=== PATIENT | female | born 1970 | race Caucasian/White ===

== ENCOUNTER 2017-09-30 23:27 | Emergency (ER) | payer MEDICARE, SELFPAY ==
[2017-09-30 23:32] VITALS: BP 128/79; PULSE 88; RESP 18; TEMP 36.8; O2SAT 100; BMI 39.4
[2017-09-30 23:36] LABS: Bedside Glucose 238 mg/dL (70-110)
--- NOTE | 2017-09-30 23:53 | ED.VISSUMM ---
- ER Visit Summary Date of Service: 09/30/17 Chief Complaint: Elevated blood sugar and nausea. History of Present Illness: The patient is a 47 F treatments and diabetes and hypertension. Patient states that her blood sugars elevated. She also states of both feet felt cold. She denies vomiting or diarrhea. She denies fever. She denies headache or chest pain. Physical Examination: Well appearing middle-aged female vital signs are stable and afebrile. Her pulse ox 100% on room air no signs of hypoxia. She is in absolutely no distress. HEENT exam unremarkable.Reactive light. Normal speech. No facial droop. Moist mucous membranes. No signs of trauma to her face or head. Neck nontender. No lymphadenopathy. Lungs clear to auscultation bilaterally. Heart regular rate and rhythm no murmur. Abdomen soft and nontender. Normal bowel sounds. She is moving all 4 extremities. They are neurovascularly intact. Both feet have normal cap refill and DP pulses. Normal range of motion and tight sensation. She is able to do both dorsi plantarflexion of both feet. Wiggle her toes. She has normal range of motion of both lower extremities. There is no edema. Neurologically she is awake and alert with no focal deficits. Skin exam unremarkable. Back exam normal. Test Results: Nurses checked her blood sugar was 238. Emergency Department Course and Treatment: Medically the patient's exam is unremarkable. She will be given a Zofran home pack for nausea and discharged to home. She needs no further testing tonight. Treatment Plan: Discharged to home with a Zofran home pack. Disposition: Discharge Impression: Acute hyperglycemia with a history of insulin-dependent diabetes Nausea This note was generated with [employer] dictation software. It may contain incorrect words, spelling, and punctuation that were not noted in review of the chart prior to signing ED Disposition - Plan for ED Patient: Chief Complaint: General Illness Referrals: Lele Hillman DO [Primary Care Provider] -
--- NOTE | 2017-09-30 23:56 | ED.DEP ---
ED Disposition - Plan for ED Patient: Disposition: Home or Assisted Living Chief Complaint: General Illness Instructions: ED Hyperglycemia Diabetic Referrals: Lele Hillman DO [Primary Care Provider] - As Needed Additional Instructions: Zofran as needed for nausea.
[2017-10-01] MEDS: Ondansetron ODT 4 MG Tablet PO ×2 (00:07→00:11)
[2017-10-01 00:09] VITALS: RESP 18
== END 2017-10-01 00:11 | disposition home or self-care (01) ==
PROVIDERS: Emergency Provider Emergency Medicine; Family Provider Student in an Organized Health Care Education/Training Program; PCP Student in an Organized Health Care Education/Training Program
DX: E11.65 Type 2 diabetes mellitus with hyperglycemia (principal); Z79.4 Long term (current) use of insulin; R11.0 Nausea; I10 Essential (primary) hypertension; Z79.899 Other long term (current) drug therapy; Z72.0 Tobacco use
CPT/HCPCS: 82962; 99284

== ENCOUNTER 2017-11-05 01:12 | Emergency (ER) | payer MEDICARE, SELFPAY ==
[2017-11-05 01:12] VITALS: BP 162/88; PULSE 146; RESP 20; TEMP 38.9; O2SAT 95; BMI 39.0
[2017-11-05] MEDS: Acetaminophen 500 MG Tablet 1000 MG PO (01:45)
[2017-11-05] MEDS: 0.9% Normal Saline 1,000 ML 999 ML IV (01:45)
[2017-11-05] MEDS: Penicillin Vk 250 MG Tablet 500 MG PO (01:46)
[2017-11-05 02:10] LABS: Bedside Glucose 232 mg/dL (70-110)
[2017-11-05 03:38] VITALS: BP 140/83; PULSE 107; RESP 20; O2SAT 95
--- NOTE | 2017-11-05 03:38 | ED.DCSUM_ITS ---
- ER Visit Summary Date of Service: 11/05/17 Chief Complaint: Sore throat History of Present Illness: The patient is a 47 F with sore throat, body aches, and fever. Symptoms started today, gradually. Sisters have bronchitis. Patient has a history of diabetes, hypertension, and high cholesterol. Physical Examination: Temperature 102.1. Heart rate 146. Hypertensive. No acute distress. Oropharynx erythematous. No stridor. No masses. Good range of motion of her neck. HEENT exam otherwise unremarkable. Heart tachycardic but regular. Lungs clear. Abdomen soft. Skin appears normal. Test Results: Glucose 232 Emergency Department Course and Treatment: Patient likely has a viral syndrome. With her risk factors and after discussion, she will be treated with Pen-Vee K. She also received a fluid bolus and Tylenol here. Repeat heart rate 107. Patient feels much improved. Eeto-ftb-ostavlx remedies for fever. Stay hydrated. Pen-Vee K. Follow-up with primary care. Return if worse. Treatment Plan: As above Disposition: Discharged Impression: 1. Acute pharyngitis 2. Dehydration This note was generated with [employer] dictation software. It may contain incorrect words, spelling, and punctuation that were not noted in review of the chart prior to signing ED Disposition - Plan for ED Patient: Chief Complaint: Fever Referrals: Lele Hillman DO [Primary Care Provider] -
--- NOTE | 2017-11-05 03:38 | ED.DEP ---
ED Disposition - Plan for ED Patient: Chief Complaint: Fever Instructions: ED Strep Pharyngitis Poss Prescriptions: Penicillin V Potassium 500 mg PO BID #20 tab Referrals: Lele Hillman DO [Primary Care Provider] -
[2017-11-05 03:44] VITALS: BP 140/83; PULSE 107; RESP 20; O2SAT 98
== END 2017-11-05 03:45 | disposition home or self-care (01) ==
PROVIDERS: Emergency Provider Emergency Medicine; Family Provider Student in an Organized Health Care Education/Training Program; PCP Student in an Organized Health Care Education/Training Program
DX: J02.9 Acute pharyngitis, unspecified (principal); E86.0 Dehydration; I10 Essential (primary) hypertension; E78.00 Pure hypercholesterolemia, unspecified; E11.9 Type 2 diabetes mellitus without complications; Z79.4 Long term (current) use of insulin; Z79.84 Long term (current) use of oral hypoglycemic drugs; Z79.899 Other long term (current) drug therapy; Z72.0 Tobacco use
CPT/HCPCS: 82962; 96360; 96361; 99283; J7030; A4216

== ENCOUNTER 2018-04-12 20:35 | Emergency (ER) | payer MEDICARE, SELFPAY ==
[2018-04-12 20:35] VITALS: BP 140/86; PULSE 119; RESP 20; TEMP 36.8; O2SAT 94; BMI 38.1
--- NOTE | 2018-04-12 21:19 | CT_ITS ---
STUDY: CT ABDOMEN AND PELVIS WITH CONTRAST REASON FOR EXAM: Female, 48 years old. Upper abdominal pain. Elevated white blood count. RADIATION DOSAGE (If Supplied By Facility): CTDIvol = ( 18.74 ) mGy, DLP = ( 1263.08 ) mGycm TECHNIQUE: Transaxial images were obtained from the dome of the diaphragm to the symphysis pubis with oral contrast. 100ML ml of Isovue 300 contrast was administered. Sagittal and coronal images were reconstructed. Individualized dose optimization techniques were used for this CT. COMPARISON: None. FINDINGS: The visualized lung bases are unremarkable. The visualized portions of the heart are within normal limits. There is diffuse fatty infiltration liver without focal mass. Normal gallbladder and extrahepatic biliary system. Normal spleen. There is a 1.4 cm splenule in the splenic hilum. Normal pancreas. Normal bilateral adrenal glands. Normal right kidney. Normal left kidney. Normal visualized ureters. Normal visualized stomach. Normal small intestine. Normal colon. The appendix is visualized and appears normal. Normal abdominal aorta. There is a retroaortic left renal vein. Normal inferior vena cava. Normal retroperitoneum. Normal urinary bladder. Normal vaginal cuff. No pelvic lymphadenopathy or mass. No free air or free fluid is seen within the peritoneal cavity. Normal abdominal wall. Normal osseous structures. CT/Abdomen/Pelvis WITH Contrast IMPRESSION: 1. Fatty infiltration liver without focal mass. 2. No other evidence of intra-abdominal or pelvic abnormality. Electronically Signed: Berhane Cardenas DO at 23:36 EDT Tel [phone], Service support ,
[2018-04-12 21:33] LABS: Absolute Lymphocyte Count 2.05 X10^3/ul (0.83-4.51); Absolute Neutrophil Count 11.1 X10^3/uL (2.0-7.7); Basophil# 0.03 X10^3/uL; Basophil% 0.2 % (0-1); Eosinophil# 0.14 X10^3/uL; Hematocrit 45.3 % (37-47); Hemoglobin 15.3 g/dl (12.0-15.0); Lymphocyte # 2.05 X10^3/ul (4.0); Lymphocyte % 14.5 % (19-41); Mean Corp Hgb Conc 33.8 g/gl (32-36); Mean Corpuscular Hgb 29.1 pg (27.0-32.0); Mean Corpuscular Volume 86.3 fL (81-99); Mean Platelet Vol. 9.8 fl (6.2-12.0); Monocyte# 0.69 X10^3/uL; Monocyte% 4.9 % (0-10); Neutrophil # 11.14 X10^3/uL (2.7-7.7); Neutrophil % 79.1 % (47-70); Platelet Count 313 K/mm3 (150-450); RBC Distribution Width CV 13.1 % (11.6-14.6); RBC Distribution Width SD 41.4 fl (35.1-43.9); Red Blood Count 5.25 M/mm3 (4.2-5.4); White Blood Count 14.1 K/mm3 (4.4-11.0)
[2018-04-12 21:36] LABS: POSITIVE COUNT NO; POSITIVE DIFFERENTIAL NO; POSITIVE MORPHOLOGY NO
[2018-04-12] MEDS: Dicyclomine 10 MG Capsule 20 MG PO (21:37)
[2018-04-12] MEDS: Ondansetron 4 MG/2 ML Vial IV (21:37)
[2018-04-12] MEDS: 0.9% Normal Saline 1,000 ML 125 ML IV (21:37)
[2018-04-12 21:42] LABS: ALB/GLOB Ratio 0.8 RATIO (0.9-2.4); AST(SGOT) 11 U/L (15-37); Alanine Aminotransfer ALT/SGPT 25 U/L (13-56); Albumin, Serum 3.8 g/dL (3.2-5.0); Alkaline Phosphatase 135 U/L (45-117); Anion Gap 11 (5-15); BUN 20 mg/dL (7-18); BUN/Creat Ratio 25.5 RATIO (10-20); Calcium,Total 9.4 mg/dL (8.5-10.1); Chloride 102 mmol/L (98-107); Creatinine, Serum 0.78 mg/dL (0.55-1.02); EST Glomerular Filtration Rate 84 mL/min (>60); Est Glom Filt Rate - Afr Amer 102 mL/min (>60); Estimated Creatinine Clearance 77.82 ml/min; Globulin 4.8 g/dL (2.2-4.2); Glucose 253 mg/dL (74-106); Lipase 172 U/L (73-393); Potassium 3.8 mmol/L (3.5-5.1); Protein, Total 8.6 g/dL (6.4-8.2); Sodium Level 136 mmol/L (136-145)
--- NOTE | 2018-04-12 23:04 | ED.VISSUMM ---
- ER Visit Summary Date of Service: 04/12/18 Chief Complaint: Abdominal pain History of Present Illness: The patient is a 48 F who states that about an hour before arrival she drank V8. She had been feeling well all day really had much to eat due to some nausea. She then had some abdominal cramping and went had a bowel movement. She states that after that she had a lot of cramping in her epigastrium. States she feels bloated. Nausea but no vomiting. Chills but notes fever. She is diabetic. She has had hysterectomy and 5 prior C-sections. No reported small bowel obstruction. Physical Examination: Afebrile vital signs show a slight tachycardia at 119 Gen: Well-nourished well-developed obese Head: Normocephalic atraumatic Eyes: Perrl EOMI ENT: TMs clear no rhinorrhea moist mucous membranes Neck: Supple no lymphadenopathy no JVD nontender CVS: Regular rate rhythm no murmurs normal S1-S2 Respiratory: No distress clear to auscultation bilaterally chest nontender Abdomen: Abdomen is soft but seems mildly distended. Decreased bowel sounds. Back: Nontender Extremity: Nontender no edema Skin: Normal color no rash Neuro: alert orientated ?3 CN II-XII intact normal strength sensation reflexes gait cerebellar Psych: Normal affect normal mood Test Results: White count slightly elevated 14.1. Glucose 253. Alk phos 135. Lipase normal at 172. CT abdomen pelvis did not demonstrate any significant findings. Emergency Department Course and Treatment: She received a dose of Bentyl and a dose of Pepcid and she has been resting comfortably. I am going to prescribe the same medications for home use. If she is still having pain in the next 20 448 hours she will need a repeat examination most likely the emergency department is not the weekend patient understands the plan is comfortable with it. Impression: 1. Acute abdominal pain This note was generated with [employer] dictation software. It may contain incorrect words, spelling, and punctuation that were not noted in review of the chart prior to signing ED Disposition - Plan for ED Patient: Disposition: Home or Assisted Living Chief Complaint: Abd Pain Instructions: ED Abdominal Pain Unkn Cause Prescriptions: Dicyclomine HCl [Bentyl] 20 mg PO TIDAC #20 cap Famotidine [Pepcid] 20 mg PO BID #28 tab Referrals: Lele Hillman DO [Primary Care Provider] - 1 Week
[2018-04-12 23:05] VITALS: PULSE 88; RESP 16; O2SAT 98
[2018-04-12] MEDS: Famotidine 20 MG Tablet PO (23:54)
[2018-04-12 23:55] VITALS: BP 117/78; PULSE 76; RESP 16
== END 2018-04-12 23:55 | disposition home or self-care (01) ==
PROVIDERS: Emergency Provider Emergency Medicine; Family Provider Student in an Organized Health Care Education/Training Program; PCP Student in an Organized Health Care Education/Training Program
DX: R10.13 Epigastric pain (principal); E11.9 Type 2 diabetes mellitus without complications; E66.9 Obesity, unspecified; Z68.38 Body mass index [BMI] 38.0-38.9, adult; Z79.4 Long term (current) use of insulin; Z79.899 Other long term (current) drug therapy; Z87.891 Personal history of nicotine dependence
CPT/HCPCS: 74177; 80053; 83690; 85025; 96361; 96374; 99284; J7030; Q9967; A4216; J2405

== ENCOUNTER 2018-07-18 10:37 | Emergency (ER) | payer MEDICARE, SELFPAY ==
[2018-07-18 10:40] VITALS: BP 142/70; PULSE 156; RESP 20; TEMP 36.6; O2SAT 96; BMI 41.0
--- NOTE | 2018-07-18 11:03 | EKG12_ITS ---
Test Reason : TACHYCARDIA Blood Pressure : / mmHG Vent. Rate : 131 BPM Atrial Rate : 129 BPM P-R Int : 000 ms QRS Dur : 074 ms QT Int : 398 ms P-R-T Axes : 000 007 050 degrees QTc Int : 587 ms Sinus tachycardia with 1st degree AV block Nonspecific T wave abnormality Abnormal ECG Confirmed by NIKUNJ MUNGUIA, FRED ([id number]), index editor JOSE MANUEL BELL ([id number]) on 07/23/2018 1:01:52 PM Referred By: GISSELLE Confirmed By:FRED CALVIN MD
--- NOTE | 2018-07-18 11:03 | RAD_ITS ---
STUDY: X-RAY CHEST REASON FOR EXAM: Female, 48 years old. TECHNIQUE:one view COMPARISON: July 02, 2017 FINDINGS: The lungs are clear and expanded. There is no demonstrated pleural abnormality. Normal size heart. Normal mediastinum and tamiko. Normal visualized pulmonary arteries. Normal visualized aortic arch and descending thoracic aorta. Normal visualized thoracic spine. Normal visualized ribs, clavicles, and shoulders. There is no demonstrated abnormality of the visualized soft tissue structures of the upper abdomen. RAD/Chest 1 View (Portable) IMPRESSION: Normal x-ray examination of the chest unchanged since July 02, 2017. Electronically Signed: Pablo Gomez, at 12:08 EST Tel , Service support ,
[2018-07-18] MEDS: 0.9% Normal Saline 1,000 ML 1000 ML IV (11:26)
[2018-07-18 11:46] LABS: Absolute Lymphocyte Count 0.98 X10^3/ul (0.83-4.51); Absolute Neutrophil Count 13.3 X10^3/uL (2.0-7.7); Basophil# 0.02 X10^3/uL; Basophil% 0.1 % (0-1); Eosinophil# 0.06 X10^3/uL; Eosinophils% 0.4 % (0-5); Hematocrit 40.3 % (37-47); Hemoglobin 13.4 g/dl (12.0-15.0); Lymphocyte # 0.98 X10^3/ul (4.0); Lymphocyte % 6.5 % (19-41); Mean Corp Hgb Conc 33.3 g/gl (32-36); Mean Corpuscular Hgb 28.8 pg (27.0-32.0); Mean Corpuscular Volume 86.5 fL (81-99); Mean Platelet Vol. 9.4 fl (6.2-12.0); Monocyte# 0.75 X10^3/uL; Neutrophil # 13.27 X10^3/uL (2.7-7.7); Neutrophil % 87.8 % (47-70); POSITIVE COUNT NO; POSITIVE DIFFERENTIAL NO; POSITIVE MORPHOLOGY NO; Platelet Count 247 K/mm3 (150-450); RBC Distribution Width CV 12.9 % (11.6-14.6); RBC Distribution Width SD 41.1 fl (35.1-43.9); Red Blood Count 4.66 M/mm3 (4.2-5.4); White Blood Count 15.1 K/mm3 (4.4-11.0)
[2018-07-18 11:47] LABS: Mucous, Urine 0 SEEN /hpf (<or=2+); Red Blood Cells-Urine 0 SEEN /hpf (0-5); Squamous Epithelial Cells - UA 0 SEEN /hpf (5-10)
[2018-07-18] MEDS: Morphine 4 MG/ML Syringe IV (11:52)
[2018-07-18 11:53] LABS: D-Dimer Quantitative (DVT/PE) 0.92 FEU/ug/m (0.27-0.49)
[2018-07-18] MEDS: Ondansetron 4 MG/2 ML Vial IV (11:53)
[2018-07-18 11:56] LABS: ALB/GLOB Ratio 0.8 RATIO (0.9-2.4); AST(SGOT) 12 U/L (15-37); Alanine Aminotransfer ALT/SGPT 19 U/L (13-56); Albumin, Serum 3.3 g/dL (3.2-5.0); Alkaline Phosphatase 133 U/L (45-117); Anion Gap 10 (5-15); BUN 17 mg/dL (7-18); BUN/Creat Ratio 23.4 RATIO (10-20); Calcium,Total 8.6 mg/dL (8.5-10.1); Chloride 103 mmol/L (98-107); Creatinine, Serum 0.73 mg/dL (0.55-1.02); EST Glomerular Filtration Rate 91 mL/min (>60); Est Glom Filt Rate - Afr Amer 111 mL/min (>60); Estimated Creatinine Clearance 83.15 ml/min; Globulin 4.4 g/dL (2.2-4.2); Glucose 204 mg/dL (74-106); Lipase 86 U/L (73-393); Potassium 3.6 mmol/L (3.5-5.1); Protein, Total 7.7 g/dL (6.4-8.2); Sodium Level 135 mmol/L (136-145)
[2018-07-18 11:59] LABS: Color, Urine Yellow (Yellow); Glucose, Dipstick Normal (Normal); Ketone-Dipstick Negative (Negative); Leukocyte Esterase-Dipstick 500 /ul (Negative); Nitrite-Dipstick Negative (Negative); Occult Blood-Urine 150 /ul (Negative); Protein-Dipstick Negative (Negative); Specific Gravity, Urine 1.005 (1.002-1.030); Urine Bilirubin Dipstick Negative (Negative); Urine Clarity Clear (Clear); Urine Urobilinogen Normal (Normal)
[2018-07-18 12:05] LABS: White Blood Cells 25-50 SEEN /hpf (0-5)
[2018-07-18 12:06] LABS: Bacteria RARE /hpf (None Seen)
[2018-07-18 12:07] LABS: Lactic Acid 1.8 mmol/L (0.4-2.0)
--- NOTE | 2018-07-18 12:32 | NURSING ---
PER LAB DDIMER 0.92. CONSTANTIN RN AND DR KAT MADE AWARE.
--- NOTE | 2018-07-18 12:37 | CT_ITS ---
PROCEDURE: CTA ABDOMEN REASON FOR EXAM: Female, 48 years old. Chest and abdominal pain. Individualized dose optimization techniques were used for this CT. ? RADIATION DOSAGE (If Supplied By Facility): CTDIvol = ( 15.89 ) mGy, DLP = ( 1044.43 ) mGycm TECHNIQUE: Axial CT angiography multi-detector data acquisition was obtained from the lung bases to the and sacral segment following intravenous administration of 100ML ml of Isovue 370 contrast. Axial images and MIP images were reconstructed from the axial data set. Post-processing of the angiographic images was performed, with multiplanar reformation. No 3D reconstruction. TECHNICAL QUALITY: Good COMPARISON: CT abdomen and pelvis April 12, 2018. Descriptors of Narrowing: None (0%) Mild (< 50%) Moderate (50-70%) Severe (70-90%) Subtotal/Total Occlusion (90-100%) Non-Evaluable (technically non-diagnostic) FINDINGS: Abdominal aorta: No demonstrated narrowing, aneurysm, or dissection. Celiac artery: No demonstrated narrowing. Superior mesenteric artery: No demonstrated narrowing. Inferior mesenteric artery: No demonstrated narrowing. Right renal artery(arteries): No demonstrated narrowing. Left renal artery(arteries): No demonstrated narrowing. Right common iliac artery: No demonstrated narrowing. Right external iliac artery: No demonstrated narrowing. Right internal iliac artery: No demonstrated narrowing. Left common iliac artery: No demonstrated narrowing. Left external iliac artery: No demonstrated narrowing. Left internal iliac artery: No demonstrated narrowing. The visualized lung bases are unremarkable. The visualized portions of the heart are within normal limits. Normal liver. The portal vein diameter is 13 mm. Normal gallbladder. Borderline ectasia of the extrahepatic biliary system. The common bile duct diameter reaches 9.5 mm. Normal spleen. 1.9 cm accessory spleen noted medial to the mid to lower pole. Normal pancreas. Normal bilateral adrenal glands. Normal right kidney. Normal left kidney. No hydronephrosis. Normal visualized stomach. Normal small intestine. Normal colon. The appendix is visualized and appears normal. Normal inferior vena cava. Normal retroperitoneum. Normal abdominal wall. Well-corticated focal invaginations consistent with benign Schmorl's nodes are seen at several lower thoracic and upper lumbar vertebral endplates. Overall, there is also mild anterior wedging and loss of height of the T12 vertebra. There are mild multilevel degenerative changes of the lumbar spine IMPRESSION: 1. No demonstrated aortic dissection, aneurysm, or stenosis. 2. No demonstrated abdominal mass or fluid collection. 3. Benign Schmorl's nodes invaginating the endplates of several lower thoracic and upper lumbar vertebra. There is mild anterior wedging and loss of height at the T12 vertebra. Electronically Signed: Nacho Alarcon MD at 14:12 EST , Service support , STUDY: CTA CHEST/THORAX REASON FOR EXAM: Female, 48 years old. Abdominal and chest pain. RADIATION DOSAGE (If Supplied By Facility): CTDIvol = ( ) mGy, DLP = ( ) mGycm TECHNIQUE: The examination was performed with the intravenous administration of 100ML ml of Isovue 370 contrast material. Post-processing of the angiographic images was performed, with multiplanar reformation and 3D reconstruction. Individualized dose optimization techniques were used for this CT. COMPARISON: None. FINDINGS: Normal enhancement of the main pulmonary artery and right and left pulmonary arteries. Normal enhancement of the bilateral peripheral pulmonary arteries. There is no demonstrated pulmonary embolism. Normal thoracic aorta and visualized great vessels. There is no demonstrated aortic dissection. Normal heart and pericardium. Normal mediastinum. Normal hilar regions. Normal visualized trachea and bronchi. There is minor subsegmental atelectasis at the inferior anteromedial margin of the right middle lobe. Normal pleura. Normal chest wall structures. There are degenerative changes of the thoracic spine. There are well corticated focal endplate invaginations consistent with benign Schmorl's nodes at multiple mid to lower thoracic levels. Overall, there is anterior wedging and loss of height of the T12 vertebra, likely chronic. Normal visualized upper abdomen. CT/CTA Abdomen W/WO Contrast IMPRESSION: 1. No pulmonary embolism or arterial dissection. 2. Minor subsegmental atelectasis in the right middle lobe. No pneumonic infiltrate or pleural effusion. 3. Degenerative changes and occasional benign Schmorl's nodes in the mid to lower thoracic spine. There is chronic appearing anterior wedging and mild loss of height of the T12 vertebra. Electronically Signed: Nacho Alarcon MD at 14:15 EST , Service support ,
[2018-07-18] MEDS: Ceftriaxone 1 GM/50 ML BAG IV (13:31)
[2018-07-18] MEDS: 0.9% Normal Saline 1,000 ML 999 ML IV (13:31)
[2018-07-18 13:39] VITALS: BP 105/70; PULSE 108; RESP 19; O2SAT 96
--- NOTE | 2018-07-18 15:10 | ED.DCSUM_ITS ---
- ER Visit Summary Date of Service: 07/18/18 Chief Complaint: [Not feeling well] History of Present Illness: The patient is a 48 F [presents to the emergency department complaint of not feeling well. Patient states this morning she was feeling dizzy and feeling hot and sweaty. Patient subjectively had a fever. Patient denies any chest pain or palpitations. She does describe for the last several days some pain in the left side of her neck that radiates down her entire left side. Patient has had some dry heaves this morning but denies any diarrhea. Patient does describe some urinary frequency but denies dysuria. Patient has history of diabetes, high cholesterol, anemia, depression, high cholesterol, and history of DVT. Patient not currently anticoagulated. Patient has been under more stress of late as recently her 15-year-old son .] Physical Examination: [HEENT-PERRLA, EOMI. Cranial nerves II through XII grossly intact. TMs clear. Mucous membranes moist. No adenopathy. Patient diaphoretic. Patient has some mild tenderness over the left lateral neck martinez murali no masses palpated. Cardiovascular-regular rate and rhythm without murmur or ectopy Lungs-clear to auscultation, chest wall stable without crepitus or subcu emphysema Abdomen-normoactive bowel sounds, soft. Patient has diffuse tenderness palpation over the left upper quadrant and left lower quadrant. No rebound, rigidity, or perineal signs. Extremities-intact ?4, normal range of motion, normal pulses, atraumatic] Test Results: [EKG obtained arrival showed a sinus tachycardia with a ventricular rate of 131 bpm with a first-degree AV block. CBC with differential obtained showed a white count of 15.1, heme globin 13, hematocrit 40, placed 247. Chemistries unremarkable. LFTs unremarkable other than a slightly elevated alkaline phosphatase of 133. Lipase is normal 86. Troponin is less than 0.015. Lactic acid was 1.8. D-dimer was elevated 0.92. Urinalysis obtained showed a 500 leukocyte esterase and 25-50 WBCs. CTA of the chest and abdomen obtained was unremarkable.] Emergency Department Course and Treatment: [Patient was given Rocephin 1 g IV and given a liter normal same fluid bolus. Patient was medicated with morphine and Zofran.] Patient's tachycardia improved and now in the 90s on repeat examination. Treatment Plan: [Given a prescription for Bactrim, Zofran, and [place].] Disposition: [Discharged home in stable condition] Impression: [Urinary tract infection Neck pain] This note was generated with [employer] dictation software. It may contain incorrect words, spelling, and punctuation that were not noted in review of the chart prior to signing ED Disposition - Plan for ED Patient: Chief Complaint: Abd Pain Referrals: Lele Hillman DO [Primary Care Provider] -
--- NOTE | 2018-07-18 15:10 | ED.DEP ---
ED Disposition - Plan for ED Patient: Chief Complaint: Abd Pain Instructions: ED Neck Pain No Trauma, ED UTI Cystitis Female Prescriptions: Hydrocodone Bitart/Apap 5-325 [[place] 5MG-325MG] 1 tab PO Q4H PRN PRN 2 Days #10 tab PRN Reason: Pain Ondansetron [Zofran Odt] 4 mg PO Q8H PRN PRN #10 tab PRN Reason: Nausea Smz/Tmp Ds [Bactrim Ds] 1 tab PO BID #14 tab Referrals: Lele Hillman DO [Primary Care Provider] - 5-7 Days
[2018-07-18 15:26] VITALS: BP 112/75; PULSE 99; RESP 16; O2SAT 99
== END 2018-07-18 15:27 | disposition home or self-care (01) ==
LOC: ED 11:41
PROVIDERS: Emergency Provider Emergency Medicine; Family Provider Student in an Organized Health Care Education/Training Program; PCP Student in an Organized Health Care Education/Training Program
DX: N39.0 Urinary tract infection, site not specified (principal); M54.2 Cervicalgia; E11.9 Type 2 diabetes mellitus without complications; E78.00 Pure hypercholesterolemia, unspecified; F32.9 Major depressive disorder, single episode, unspecified; Z86.718 Personal history of other venous thrombosis and embolism; Z79.4 Long term (current) use of insulin; Z79.899 Other long term (current) drug therapy; Z72.0 Tobacco use
CPT/HCPCS: 36415; 71045; 71275; 74175; 80053; 81001; 83605; 83690; 84484; 85025; 85379; 87040; 87086; 87088; 87186; 93005; 99285; J7030; Q9967; A4216; J2405

== ENCOUNTER 2018-07-20 17:19 | Emergency (ER) | payer MEDICARE, SELFPAY ==
[2018-07-20 17:20] VITALS: BP 119/78; PULSE 79; RESP 18; TEMP 36.8; O2SAT 100; BMI 38.3
[2018-07-20] MEDS: 0.9% Normal Saline 1,000 ML 999 ML IV (17:40)
--- NOTE | 2018-07-20 18:17 | CT_ITS ---
STUDY: CTA NECK WITH AND WITHOUT CONTRAST REASON FOR EXAM: Female, 48 years old. Severe headache vomiting and dizziness RADIATION DOSAGE (If Supplied By Facility): CTDIvol = ( 31.31 ) mGy, DLP = ( 1382.40 ) mGycm TECHNIQUE: CT angiography with multi-detector data acquisition was performed from the aortic arch to the skull base prior to and after intravenous administration of 100ML ml of Isovue 370 contrast. MIP images were reconstructed from the axial data set. Post-processing of the angiographic images was performed, with multiplanar reformation and 3D reconstruction. Individualized dose optimization techniques were used for this CT. COMPARISON: None. FINDINGS: AORTIC ARCH: Normal visualized aortic arch. Normal origins of the brachiocephalic, left common carotid, and left subclavian arteries. RIGHT CAROTID ARTERIES: Normal right common carotid artery (CCA). Normal right common carotid bulb. Normal origin of the right internal carotid (ICA) artery without a hemodynamically significant stenosis. Normal visualized cervical portion of the right internal carotid artery. Normal origin of the right external carotid artery (ECA). LEFT CAROTID ARTERIES: Normal left common carotid artery (CCA). Normal left common carotid bulb. Normal origin of the left internal carotid (ICA) artery without a hemodynamically significant stenosis. Normal visualized cervical portion of the left internal carotid artery. Normal origin of the left external carotid artery (ECA). VERTEBRAL ARTERIES: Normal bilateral vertebral arteries. There is a nonspecific submental lymph node. There are nonspecific neck soft tissue lymph nodes. There is a right perimandibular lymph node measuring [address]/CTA Neck W/WO Contrast IMPRESSION: Normal bilateral cervical carotid and vertebral arteries. Electronically Signed: Sylwia Stroud MD at 18:58 EST Tel , Service support ,
--- NOTE | 2018-07-20 18:17 | CT_ITS ---
STUDY: CTA OF THE BRAIN REASON FOR EXAM: Female, 48 years old. RADIATION DOSAGE (If Supplied By Facility): CTDIvol = ( 31.31 ) mGy, DLP = ( 1382.40 ) mGycm TECHNIQUE: CT angiography was performed with a multi-detector CT scanner. Data acquisition was obtained from the skull base through the vertex following intravenous administration of ml of . MIP images were reconstructed from the axial data set. Post-processing of the angiographic images was performed, with multiplanar reformation and 3D reconstruction. Individualized dose optimization techniques were used for this CT. COMPARISON: None. FINDINGS: Normal bilateral petrous carotid arteries. Normal right cavernous carotid artery with a normal supraclinoid bifurcation. There is calcified plaque formation of the left cavernous carotid artery, without a cross-sectional luminal stenosis. Normal right A1 segments of the anterior cerebral artery. Normal left A1 segments of the anterior cerebral artery. Normal intact anterior communicating artery (ACOM). Normal bilateral A2 segments of the anterior cerebral arteries. Normal right M1 and M2 segments of the middle cerebral arteries, with a normal M1 bifurcation. Normal left M1 and M2 segments of the middle cerebral arteries, with a normal M1 bifurcation. Normal right posterior communicating artery (PCOM). There is non-visualization of the left posterior communicating artery (PCOM). Normal bilateral vertebral arteries. Normal basilar artery with a normal basilar bifurcation. The visualized bilateral superior cerebellar (SCA) arteries are normal. Normal bilateral P1, P2 and visualized P3 segments of the posterior cerebral arteries. There is no demonstrated aneurysm of the [place] of [place]. There is no demonstrated abnormality of the visualized brain. CT/CTA Head W/WO Contrast IMPRESSION: Normal [place] of [place] without a demonstrated aneurysm or hemodynamically significant stenosis. Electronically Signed: Sylwia Stroud MD at 19:00 EST Tel , Service support ,
--- NOTE | 2018-07-20 18:18 | ED.VISSUMM ---
- ER Visit Summary Date of Service: 07/20/18 Chief Complaint: Headache and neck pain History of Present Illness: The patient is a 48 F who presents for headache since yesterday. Patient was evaluated in the emergency department 2 days ago and diagnosed with urinary tract infection. At that time she was complaining of left-sided neck pain. Patient states she is still having the neck pain and now has diffuse head pressure. She is vomiting and has been unable to keep any liquids, food or her medications down. She has had cold sweats. She is complaining of photophobia. She states her balance has been off. She denies numbness or weakness in the arms or legs. No difficulty swallowing or speaking. She is diabetic and has been unable to take her medications since yesterday morning. 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 She is not on any blood thinners. Physical Examination: Vital signs: afebrile, hemodynamically stable, no hypoxia on room air General: well nourished, well developed, in no distress sitting in bed with the lights on and her eyes closed Skin: warm, dry, no rash, no pallor HEENT: normocephalic and atraumatic; no tenderness, no vesicular rash, no temporal artery tenderness, PERRL, EOMI, able to keep eyes open with the lights on, no conjunctival injection, no nystagmus, difficulty with finger counting but able to track my finger when doing finger to nose, moist mucous membranes, edentulous, neck is supple, no lymphadenopathy, full range of motion, tenderness to palpation of the left paraspinal musculature Cardiovascular: regular rate and rhythm without murmurs, no peripheral edema, 2+ pulses all distal extremities Respiratory: No increased work of breathing, lungs are clear to auscultation bilaterally, no rales, rhonchi or wheezing Abdominal: Abdomen is soft, nontender with normoactive bowel sounds, no guarding or rebound, no masses MSK: Moves all extremities, no deformities, normal strength Neuro: Awake and alert, oriented ?4. No facial droop, sensation and motor function intact and symmetric, no cerebellar findings Test Results: Abnormal Lab Results 07/20/18 07/20/18 07/20/18 17:40 17:40 17:40 WBC 6.2 RBC 4.69 Hgb 13.3 Hct 40.7 MCV 86.8 MCH 28.4 MCHC 32.7 RDW 13.3 RDW Differential 42.2 Plt Count 252 MPV 10.3 Immature Gran % (Auto) 0.200 Neut % (Auto) 73.8 H Lymph % (Auto) 17.2 L [place] % (Auto) 7.4 Eos % (Auto) 1.1 Baso % (Auto) 0.3 Absolute Neuts (auto) 4.6 Absolute Lymphs (auto) 1.07 Total Counted Not Reportable ESR 72 H PT 14.0 INR 1.1 APTT 32.2 Sodium 137 Potassium 5.0 Chloride 103 Carbon Dioxide 22.0 Anion Gap 12 BUN 13 Creatinine 0.74 Estim Creat Clear Calc 82.03 Est GFR (MDRD) Af Amer 109 Est GFR (MDRD) Non-Af 90 BUN/Creatinine Ratio 17.6 Glucose 222 H Calcium 8.8 C-React Prot Ext Range 130.00 H Urine Color Urine Clarity Urine pH Ur Specific [place] Urine Protein Urine Glucose (UA) Urine Ketones Urine Occult Blood Urine Nitrite Urine Bilirubin Urine Urobilinogen Ur Leukocyte Esterase Urine RBC Urine WBC Ur Squamous Epith Cells Urine Bacteria Urine Mucus 07/20/18 18:54 WBC RBC Hgb Hct MCV MCH MCHC RDW RDW Differential Plt Count MPV Immature Gran % (Auto) Neut % (Auto) Lymph % (Auto) [place] % (Auto) Eos % (Auto) Baso % (Auto) Absolute Neuts (auto) Absolute Lymphs (auto) Total Counted ESR PT INR APTT Sodium Potassium Chloride Carbon Dioxide Anion Gap BUN Creatinine Estim Creat Clear Calc Est GFR (MDRD) Af Amer Est GFR (MDRD) Non-Af BUN/Creatinine Ratio Glucose Calcium C-React Prot Ext Range Urine Color Yellow Urine Clarity Sl. Cloudy Urine pH 7.0 Ur Specific [place] 1.010 Urine Protein 30 H Urine Glucose (UA) 1000 H Urine Ketones 150 H Urine Occult Blood 50 H Urine Nitrite Negative Urine Bilirubin Negative Urine Urobilinogen 4 H Ur Leukocyte Esterase Negative Urine RBC 5-10 SEEN Urine WBC 0-5 SEEN Ur Squamous Epith Cells 5-10 SEEN Urine Bacteria RARE Urine Mucus 0 SEEN Clinical Impression(s) from Imaging Studies Head CTA 07/20/18 18:17 IMPRESSION: Normal [place] without a demonstrated aneurysm or hemodynamically significant stenosis. Electronically Signed: Sylwia Stroud MD at 19:00 EST Tel , Service support , Neck CTA 07/20/18 18:17 IMPRESSION: Normal bilateral cervical carotid and vertebral arteries. Electronically Signed: Sylwia Stroud MD at 18:58 EST Tel , Service support , Medications Given Discontinued Medications Diphenhydramine HCl (Benadryl) 25 mg IV X1 ONE Stop: 07/20/18 18:18 Last Admin: 07/20/18 18:24 Dose: 25 mg Sodium Chloride () 1,000 mls @ 999 mls/hr IV .Q1H1M ONE Stop: 07/20/18 19:17 Last Admin: 07/20/18 17:40 Dose: 999 mls/hr Metoclopramide HCl (Reglan) 10 mg IV X1 ONE Stop: 07/20/18 18:18 Last Admin: 07/20/18 18:24 Dose: 10 mg Emergency Department Course and Treatment: Patient presents with complaint of severe head pressure after having neck pain for 2 days. She has had associated vomiting and photophobia, although she tolerate the lights on during her exam. Given her complaints, head CT and CTA of the head and neck was performed. Patient was given IV fluids and migraine cocktail without the Toradol. CT a showed no intracranial hemorrhage or aneurysm. CT of the neck showed no dissection or significant stenosis. Patient had no leukocytosis, had a normal electrolyte panel. Urine was negative for UTI, and patient was encouraged to continue her medications that she is taking for her UTI that was diagnosed a couple days ago. Patient did have elevated ESR and CRP, however she had no findings concerning for temporal arteritis. Patient was reevaluated and was sleeping. Upon waking up she stated her headache felt much better. Patient is to follow-up with her primary care doctor. She was able to ambulate without difficulty. No focal neuro deficits. Discharged home. Treatment Plan: [] Disposition: [] Impression: Acute cephalgia This note was generated with [employer] software. It may contain incorrect words, spelling, and punctuation that were not noted in review of the chart prior to signing ED Disposition - Plan for ED Patient: Disposition: Home or Assisted Living Chief Complaint: Headache Instructions: ED Cephalgia Unspecified Referrals: Lele Hillman DO [Primary Care Provider] - 1-2 Days if not improving Additional Instructions: Use [id number] pain medication as needed for headache. Please follow-up with your doctor for further evaluation if you continue to have headaches. Continue your medications that were prescribed to you for your chronic medical conditions and for your urine infection. If you have any worsening of your condition or any new concerning symptoms, please return immediately to the emergency department for another evaluation.
--- NOTE | 2018-07-20 18:21 | ED.DCSUM_ITS ---
- ER Visit Summary Date of Service: 07/20/18 Chief Complaint: Headache and neck pain History of Present Illness: The patient is a 48 F who presents for headache since yesterday. Patient was evaluated in the emergency department 2 days ago and diagnosed with urinary tract infection. At that time she was complaining of left-sided neck pain. Patient states she is still having the neck pain and now has diffuse head pressure. She is vomiting and has been unable to keep any liquids, food or her medications down. She has had cold sweats. She is complaining of photophobia. She states her balance has been off. She denies numbness or weakness in the arms or legs. No difficulty swallowing or speaking. She is diabetic and has been unable to take her medications since yesterday morning. 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 She is not on any blood thinners. Physical Examination: Vital signs: afebrile, hemodynamically stable, no hypoxia on room air General: well nourished, well developed, in no distress sitting in bed with the lights on and her eyes closed Skin: warm, dry, no rash, no pallor HEENT: normocephalic and atraumatic; no tenderness, no vesicular rash, no temporal artery tenderness, PERRL, EOMI, able to keep eyes open with the lights on, no conjunctival injection, no nystagmus, difficulty with finger counting but able to track my finger when doing finger to nose, moist mucous membranes, edentulous, neck is supple, no lymphadenopathy, full range of motion, tenderness to palpation of the left paraspinal musculature Cardiovascular: regular rate and rhythm without murmurs, no peripheral edema, 2+ pulses all distal extremities Respiratory: No increased work of breathing, lungs are clear to auscultation bilaterally, no rales, rhonchi or wheezing Abdominal: Abdomen is soft, nontender with normoactive bowel sounds, no guarding or rebound, no masses MSK: Moves all extremities, no deformities, normal strength Neuro: Awake and alert, oriented ?4. No facial droop, sensation and motor function intact and symmetric, no cerebellar findings Test Results: Abnormal Lab Results 07/20/18 07/20/18 07/20/18 17:40 17:40 17:40 WBC 6.2 RBC 4.69 Hgb 13.3 Hct 40.7 MCV 86.8 MCH 28.4 MCHC 32.7 RDW 13.3 RDW Differential 42.2 Plt Count 252 MPV 10.3 Immature Gran % (Auto) 0.200 Neut % (Auto) 73.8 H Lymph % (Auto) 17.2 L [place] % (Auto) 7.4 Eos % (Auto) 1.1 Baso % (Auto) 0.3 Absolute Neuts (auto) 4.6 Absolute Lymphs (auto) 1.07 Total Counted Not Reportable ESR 72 H PT 14.0 INR 1.1 APTT 32.2 Sodium 137 Potassium 5.0 Chloride 103 Carbon Dioxide 22.0 Anion Gap 12 BUN 13 Creatinine 0.74 Estim Creat Clear Calc 82.03 Est GFR (MDRD) Af Amer 109 Est GFR (MDRD) Non-Af 90 BUN/Creatinine Ratio 17.6 Glucose 222 H Calcium 8.8 C-React Prot Ext Range 130.00 H Urine Color Urine Clarity Urine pH Ur Specific [place] Urine Protein Urine Glucose (UA) Urine Ketones Urine Occult Blood Urine Nitrite Urine Bilirubin Urine Urobilinogen Ur Leukocyte Esterase Urine RBC Urine WBC Ur Squamous Epith Cells Urine Bacteria Urine Mucus 07/20/18 18:54 WBC RBC Hgb Hct MCV MCH MCHC RDW RDW Differential Plt Count MPV Immature Gran % (Auto) Neut % (Auto) Lymph % (Auto) [place] % (Auto) Eos % (Auto) Baso % (Auto) Absolute Neuts (auto) Absolute Lymphs (auto) Total Counted ESR PT INR APTT Sodium Potassium Chloride Carbon Dioxide Anion Gap BUN Creatinine Estim Creat Clear Calc Est GFR (MDRD) Af Amer Est GFR (MDRD) Non-Af BUN/Creatinine Ratio Glucose Calcium C-React Prot Ext Range Urine Color Yellow Urine Clarity Sl. Cloudy Urine pH 7.0 Ur Specific [place] 1.010 Urine Protein 30 H Urine Glucose (UA) 1000 H Urine Ketones 150 H Urine Occult Blood 50 H Urine Nitrite Negative Urine Bilirubin Negative Urine Urobilinogen 4 H Ur Leukocyte Esterase Negative Urine RBC 5-10 SEEN Urine WBC 0-5 SEEN Ur Squamous Epith Cells 5-10 SEEN Urine Bacteria RARE Urine Mucus 0 SEEN Clinical Impression(s) from Imaging Studies Head CTA 07/20/18 18:17 IMPRESSION: Normal [place] without a demonstrated aneurysm or hemodynamically significant stenosis. Electronically Signed: Sylwia Stroud MD at 19:00 EST Tel , Service support , Neck CTA 07/20/18 18:17 IMPRESSION: Normal bilateral cervical carotid and vertebral arteries. Electronically Signed: Sylwia Stroud MD at 18:58 EST Tel , Service support , Medications Given Discontinued Medications Diphenhydramine HCl (Benadryl) 25 mg IV X1 ONE Stop: 07/20/18 18:18 Last Admin: 07/20/18 18:24 Dose: 25 mg Sodium Chloride () 1,000 mls @ 999 mls/hr IV .Q1H1M ONE Stop: 07/20/18 19:17 Last Admin: 07/20/18 17:40 Dose: 999 mls/hr Metoclopramide HCl (Reglan) 10 mg IV X1 ONE Stop: 07/20/18 18:18 Last Admin: 07/20/18 18:24 Dose: 10 mg Emergency Department Course and Treatment: Patient presents with complaint of severe head pressure after having neck pain for 2 days. She has had associated vomiting and photophobia, although she tolerate the lights on during her exam. Given her complaints, head CT and CTA of the head and neck was performed. Patient was given IV fluids and migraine cocktail without the Toradol. CT a showed no intracranial hemorrhage or aneurysm. CT of the neck showed no dissection or significant stenosis. Patient had no leukocytosis, had a normal electrolyte panel. Urine was negative for UTI, and patient was encouraged to continue her medications that she is taking for her UTI that was diagnosed a couple days ago. Patient did have elevated ESR and CRP, however she had no findings concerning for temporal arteritis. Patient was reevaluated and was sleeping. Upon waking up she stated her headache felt much better. Patient is to follow-up with her primary care doctor. She was able to ambulate without difficulty. No focal neuro deficits. Discharged home. Treatment Plan: [] Disposition: [] Impression: Acute cephalgia This note was generated with [employer] software. It may contain incorrect words, spelling, and punctuation that were not noted in review of the chart prior to signing ED Disposition - Plan for ED Patient: Disposition: Home or Assisted Living Chief Complaint: Headache Instructions: ED Cephalgia Unspecified Referrals: Lele Hillman DO [Primary Care Provider] - 1-2 Days if not improving Additional Instructions: Use [id number] pain medication as needed for headache. Please follow-up with your doctor for further evaluation if you continue to have headaches. Continue your medications that were prescribed to you for your chronic medical conditions and for your urine infection. If you have any worsening of your condition or any new concerning symptoms, please return immediately to the emergency department for another evaluation.
[2018-07-20] MEDS: Metoclopramide 10 MG/2 ML Vial IV (18:24)
[2018-07-20] MEDS: DiphenhydrAMINE 50 MG/ML Syringe 25 MG IV (18:24)
[2018-07-20 18:57] LABS: Absolute Lymphocyte Count 1.07 X10^3/ul (0.83-4.51); Absolute Neutrophil Count 4.6 X10^3/uL (2.0-7.7); Basophil# 0.02 X10^3/uL; Basophil% 0.3 % (0-1); Eosinophil# 0.07 X10^3/uL; Eosinophils% 1.1 % (0-5); Hematocrit 40.7 % (37-47); Hemoglobin 13.3 g/dl (12.0-15.0); Lymphocyte # 1.07 X10^3/ul (4.0); Lymphocyte % 17.2 % (19-41); Mean Corp Hgb Conc 32.7 g/gl (32-36); Mean Corpuscular Hgb 28.4 pg (27.0-32.0); Mean Corpuscular Volume 86.8 fL (81-99); Mean Platelet Vol. 10.3 fl (6.2-12.0); Monocyte# 0.46 X10^3/uL; Monocyte% 7.4 % (0-10); Neutrophil % 73.8 % (47-70); Platelet Count 252 K/mm3 (150-450); RBC Distribution Width CV 13.3 % (11.6-14.6); RBC Distribution Width SD 42.2 fl (35.1-43.9); Red Blood Count 4.69 M/mm3 (4.2-5.4); White Blood Count 6.2 K/mm3 (4.4-11.0)
[2018-07-20 18:58] LABS: Mucous, Urine 0 SEEN /hpf (<or=2+)
[2018-07-20 18:59] LABS: POSITIVE COUNT NO; POSITIVE DIFFERENTIAL NO; POSITIVE MORPHOLOGY NO
[2018-07-20 19:04] LABS: Anion Gap 12 (5-15); BUN 13 mg/dL (7-18); BUN/Creat Ratio 17.6 RATIO (10-20); Calcium,Total 8.8 mg/dL (8.5-10.1); Chloride 103 mmol/L (98-107); Creatinine, Serum 0.74 mg/dL (0.55-1.02); EST Glomerular Filtration Rate 90 mL/min (>60); Est Glom Filt Rate - Afr Amer 109 mL/min (>60); Estimated Creatinine Clearance 82.03 ml/min; Glucose 222 mg/dL (74-106); Sodium Level 137 mmol/L (136-145)
[2018-07-20 19:10] LABS: Color, Urine Yellow (Yellow); Glucose, Dipstick 1000 mg/dl (Normal); Leukocyte Esterase-Dipstick Negative /ul (Negative); Nitrite-Dipstick Negative (Negative); Occult Blood-Urine 50 /ul (Negative); Protein-Dipstick 30 mg/dl (Negative); Urine Bilirubin Dipstick Negative (Negative); Urine Clarity Sl. Cloudy (Clear); Urine Urobilinogen 4 mg/dl (Normal)
[2018-07-20 19:12] LABS: Ketone-Dipstick 150 mg/dl (Negative)
[2018-07-20 19:16] LABS: Bacteria RARE /hpf (None Seen); Red Blood Cells-Urine 5-10 SEEN /hpf (0-5); Squamous Epithelial Cells - UA 5-10 SEEN /hpf (5-10); White Blood Cells 0-5 SEEN /hpf (0-5)
[2018-07-20 19:28] VITALS: RESP 16
[2018-07-20 19:35] LABS: International Normalized Ratio 1.1
[2018-07-20 19:36] LABS: Partial Thromboplast Time 32.2 Seconds (24.1-36.2)
--- NOTE | 2018-07-20 20:54 | ED.DEP ---
ED Disposition - Plan for ED Patient: Disposition: Home or Assisted Living Chief Complaint: Headache Instructions: ED Cephalgia Unspecified Referrals: Lele Hillman DO [Primary Care Provider] - 1-2 Days if not improving Additional Instructions: Use [id number] pain medication as needed for headache. Please follow-up with your doctor for further evaluation if you continue to have headaches. Continue your medications that were prescribed to you for your chronic medical conditions and for your urine infection. If you have any worsening of your condition or any new concerning symptoms, please return immediately to the emergency department for another evaluation.
[2018-07-20 21:08] VITALS: BP 115/71; PULSE 82; RESP 14; O2SAT 100
[2018-07-21 01:19] LABS: Erythrocyte Sedimentation Rate 75 mm/hr (0-20)
== END 2018-07-20 21:09 | disposition home or self-care (01) ==
PROVIDERS: Emergency Provider Emergency Medicine; Family Provider Student in an Organized Health Care Education/Training Program; PCP Student in an Organized Health Care Education/Training Program
DX: R51 Headache (principal); M54.2 Cervicalgia; E11.9 Type 2 diabetes mellitus without complications; G40.909 Epilepsy, unspecified, not intractable, without status epilepticus; Z87.820 Personal history of traumatic brain injury; Z79.4 Long term (current) use of insulin; Z79.899 Other long term (current) drug therapy
CPT/HCPCS: 70496; 70498; 80048; 81001; 85025; 85610; 85652; 85730; 86140; 96361; 96374; 96375; 99285; Q9967; A4216

== ENCOUNTER 2019-03-10 23:08 | Emergency (ER) | payer MEDICARE, SELFPAY ==
[2019-03-10 23:09] VITALS: BP 118/75; PULSE 125; RESP 15; TEMP 36.8; O2SAT 97; BMI 36.6
--- NOTE | 2019-03-10 23:21 | RAD_ITS ---
STUDY: X-RAY - RIGHT HAND REASON FOR EXAM: Female, 48 years old. Trauma TECHNIQUE: 3 view(s) of the hand. COMPARISON: None. FINDINGS: Normal radiocarpal articulation. Normal distal radioulnar joint. Normal visualized carpal bones. Normal carpal articulations Normal carpometacarpal articulation of the thumb. Normal second through fifth carpometacarpal joints. Normal metacarpi. Normal metacarpophalangeal joint of the thumb. Normal interphalangeal joint of the thumb. Normal proximal and distal phalanges of the thumb. Normal metacarpophalangeal joints of the second through fifth fingers. Normal proximal and distal interphalangeal joints of the second through fifth fingers. Normal phalanges of the second through fifth fingers. The soft tissue structures are unremarkable. RAD/Hand Min 3 Views IMPRESSION: Normal x-ray examination of the hand. Electronically Signed: Liam Estes MD at 23:46 EDT , Service support ,
--- NOTE | 2019-03-10 23:22 | ED.DCSUM_ITS ---
History of Present Illness Chief Complaint: Upper Extremity Injury Informant: Patient Occurred: Today - JPTA Context: Sudden Onset - injured somehow Timing: Continuous Quality of Pain: Aching Location: right thumb Current Severity: Moderate Maximum Severity: Severe Worsened by: palpation, moving Relieved by: remaining still, ice Associated Symptoms: Loss of Funtion. Negative for: Parasthesia, Weakness Narrative: Patient states her sister was teaching her self-defense. During that she injured her right thumb and has no idea what the mechanism was but she cannot move it because of the pain and bruising. She denies any other injuries. She is right-hand dominant. - Past Medical History (1) DVT (deep venous thrombosis) Status: Chronic Comment: below knee (2) Depression Status: Chronic (3) Diabetes mellitus Status: Chronic (4) Hyperlipidemia Status: Chronic (5) Iron deficiency anemia Status: Chronic Past Medical History - Allergies and Home Meds Allergies/Adverse Reactions: Allergies iron Adverse Reaction (Verified 03/10/19 23:12) Nausea oxycodone HCl [From Percocet] Adverse Reaction (Verified 03/10/19 23:12) Nausea sertraline HCl [From Zoloft] Adverse Reaction (Verified 03/10/19 23:12) Nausea BEES Allergy (Uncoded 07/20/18 17:22) Anaphylaxis PAPER TAPE Allergy (Uncoded 07/20/18 17:22) Rash Primary Care Physician: Lele Hillman DO [Primary Care Provider] - Surgical History: - - Multiple C-sections Lives: With Family Smoking Status: Current some day smoker Drugs: None - Family History Maternal Family History: Reports: No pertinent history Review of Systems Musculoskeletal: Reports: Swelling, Extremity Pain Skin: Denies: Rash Neurological: Denies: Weakness, Parasthesia, Numbness Physical Exam Vital Signs/Narrative: Vital Signs Temp Pulse Resp BP Pulse Ox 03/10/19 23:09 98.2 F 125 H 15 118/75 97 General: Well nourished, Well developed Head: Normocephalic, Atraumatic Extremeties: Bruising with intact skin, pain, tenderness about the right thumb proximal phalanx and metacarpal. Very limited range of motion secondary to pain, but she is able to flex at the IP joint and displayed that the deep flexor is intact. She is not able to actively opposed, extend, abduct, or abduct. Significant tenderness in all these areas especially with stressing the ulnar collateral ligament at the MCPJ. No significant pain with stressing the radial collateral ligament which is intact. No deformities. No other areas of wrist or hand tenderness. Skin: Normal color, No rash, Trauma - Bruising to dorsum of right thumb, skin intact Neurological: Alert, Oriented x3, Cranial nerves II-XII grossly intact, Normal Strength, Normal Sensation, Normal Gait Psychological: Normal affect, Normal Mood Diagnostic/Tx/Re-eval Clinical Impression(s) from Imaging Studies Hand X-Ray 03/10/19 23:21 IMPRESSION: Normal x-ray examination of the hand. Electronically Signed: Liam Estes MD at 23:46 EDT , Service support , - Medical Decision Making X-rays unremarkable. Certainly patient could have ligamentous injury to her right thumb. Will treat her with an Ultram while here, along with anti- inflammatories and a thumb spica splint with outpatient follow-up. ED Disposition - Plan for ED Patient: Disposition: Home or Assisted Living Diagnosis: Sprain of right thumb Instructions: Sprain Finger Prescriptions: Naproxen [Naprosyn] 500 mg PO BID PRN #20 tab Prescription Printed Referrals: Lele Hillman DO [Primary Care Provider] - Marycarmen Shah DO [STAFF PHYSICIAN] - 10-14 Days if not better
[2019-03-11] MEDS: Naproxen 500 MG Tablet PO (00:12)
[2019-03-11] MEDS: traMADol 50 MG Tablet PO (00:12)
[2019-03-11 00:15] VITALS: BP 135/80; PULSE 80; RESP 16; TEMP 36.1
== END 2019-03-11 00:16 | disposition home or self-care (01) ==
PROVIDERS: Emergency Provider Emergency Medicine; Family Provider Student in an Organized Health Care Education/Training Program; PCP Student in an Organized Health Care Education/Training Program
DX: S63.641A Sprain of metacarpophalangeal joint of right thumb, initial encounter (principal); X58.XXXA Exposure to other specified factors, initial encounter; Y93.89 Activity, other specified; E11.9 Type 2 diabetes mellitus without complications; E78.5 Hyperlipidemia, unspecified; F32.9 Major depressive disorder, single episode, unspecified; D50.9 Iron deficiency anemia, unspecified; F17.200 Nicotine dependence, unspecified, uncomplicated; Z79.84 Long term (current) use of oral hypoglycemic drugs; Z79.899 Other long term (current) drug therapy
CPT/HCPCS: 73130; 99284

== ENCOUNTER 2019-04-19 00:13 | Emergency (ER) | payer MEDICARE, SELFPAY ==
[2019-04-19 00:14] VITALS: BP 150/78; PULSE 88; RESP 18; TEMP 36.7; O2SAT 98; BMI 34.9
--- NOTE | 2019-04-19 00:25 | RAD_ITS ---
STUDY: X-RAY - RIGHT HAND REASON FOR EXAM: Female, 49 years old. Refrigerator, pain and bruising to right thumb. TECHNIQUE: 3 view(s) of the hand. COMPARISON: 03/10/2019 FINDINGS: Acute transverse fracture through base of the first proximal phalanx without displacement. There is intra-articular extension. Normal radiocarpal articulation. Normal distal radioulnar joint. Normal visualized carpal bones. Normal carpal articulations Normal carpometacarpal articulation of the thumb. Normal second through fifth carpometacarpal joints. Normal metacarpi. Normal metacarpophalangeal joint of the thumb. Normal interphalangeal joint of the thumb. Otherwise normal proximal and distal phalanges of the thumb. Normal metacarpophalangeal joints of the second through fifth fingers. Normal proximal and distal interphalangeal joints of the second through fifth fingers. Normal phalanges of the second through fifth fingers. The soft tissue structures are unremarkable. RAD/Hand Min 3 Views IMPRESSION: Acute nondisplaced fracture through the base of the first proximal phalanx with intra-articular extension. Electronically Signed: Maryellen Robbins MD at 0:48 EDT , Service support ,
--- NOTE | 2019-04-19 00:26 | ED.DCSUM_ITS ---
History of Present Illness Chief Complaint: Upper Extremity Injury Informant: Patient Narrative: Stated she injured her thumb this afternoon. She accidentally struck it on the refrigerator while trying to restrain her autistic son. She has a thumb spica splint from a previous injury a month and a half ago. X-rays at the time were negative of her thumb. She took ibuprofen this afternoon. Injury happened this afternoon. She suffers a bruise per patient. Worse with movement. Relieved w ith rest. Current severity is moderate. Positive throbbing. - Past Medical History (1) Chest pain Status: Acute (2) Gastroenteritis Status: Acute (3) DVT (deep venous thrombosis) Status: Chronic Comment: below knee (4) Depression Status: Chronic (5) Diabetes mellitus Status: Chronic (6) Hyperlipidemia Status: Chronic (7) Iron deficiency anemia Status: Chronic (8) Menorrhagia Status: Chronic (9) Obesity Status: Chronic Past Medical History - Allergies and Home Meds Allergies/Adverse Reactions: Allergies iron Adverse Reaction (Verified 04/19/19 00:17) Nausea oxycodone HCl [From Percocet] Adverse Reaction (Verified 04/19/19 00:17) Nausea sertraline HCl [From Zoloft] Adverse Reaction (Verified 04/19/19 00:17) Nausea BEES Allergy (Uncoded 04/19/19 00:17) Anaphylaxis PAPER TAPE Allergy (Uncoded 04/19/19 00:17) Rash Primary Care Physician: Lele Hillman DO [Primary Care Provider] - Prior records reviewed: Yes Past Medical History: - - See problem list Surgical History: noncontributory, - - Multiple C-sections Lives: With Family Smoking Status: Light Smoker (<10/day) Alcohol: None Drugs: None - Family History Maternal Family History: Reports: No pertinent history Review of Systems General: Denies: Chills, Fever, Sweats Eyes: Denies: Visual changes - bilaterally, Diplopia ENT: Denies: Rhinorrhea, Sore throat Cardiovascular: Denies: Chest pain, Palpitations Respiratory: Denies: Dyspnea, Cough, Dyspnea on exertion Gastrointestinal: Denies: Abdominal pain, Nausea, Vomiting, Diarrhea, Melena, Hematochezia Genitourinary: Denies: Dysuria, Hematuria, Frequency Musculoskeletal: Reports: Extremity Pain - See HPI. Denies: Back pain Skin: Reports: - - See HPI. Denies: Rash, Wounds Neurological: Denies: Headache, Weakness, Numbness Physical Exam Vital Signs/Narrative: Vital Signs Temp Pulse Resp BP Pulse Ox 04/19/19 00:14 98.1 F 88 18 150/78 H 98 General: Well nourished, Well developed, No Acute Distress Head: Normocephalic, Atraumatic Eyes: Perrl, EOMI ENT: Moist mucous membranes, No rhinorrhea Neck: Supple, Nontender Cardiovascular: Regular rate, Regular rhythm, No murmurs Respiratory: No distress, CTA bilaterally, Chest nontender Abdomen: Soft, Nontender, Nondistended, Normal bowel sounds Back: Nontender, Normal Inspection Extremities: Tenderness - Tenderness and swelling to the base of the right thumb. Positive contusion noted. Decreased range of motion secondary to pain. Distal neurovascular intact.. Negative for: Nontender, No edema Skin: No rash, Trauma. Negative for: Normal color Neurological: Alert, Oriented x3, Cranial nerves II-XII grossly intact, Normal Strength, Normal Sensation Psychological: Normal affect, Normal Mood Diagnostic/Tx/Re-eval - Medical Decision Making Given ice pack ibuprofen x-ray obtained of the right hand x-ray shows a fracture to the base of the thumb. Patient placed in a prefabricated Ortho-Glass thumb spica splint. Tolerated this procedure well. Distal neurovascular intact afterwards. Will be given Mobic for home and follow-up with orthopedics ED Disposition - Plan for ED Patient: Disposition: Home or Assisted Living Diagnosis: Thumb fracture Instructions: FRACTURE, Hand (Closed) Prescriptions: Meloxicam [Mobic] 15 mg PO DAILY #15 tab Prescription Printed Referrals: Goran Quezada MD [STAFF PHYSICIAN] -
[2019-04-19] MEDS: Ibuprofen 600 MG Tablet PO (00:31)
== END 2019-04-19 01:10 | disposition home or self-care (01) ==
PROVIDERS: Emergency Provider Emergency Medicine; Family Provider Student in an Organized Health Care Education/Training Program; PCP Student in an Organized Health Care Education/Training Program
DX: S62.514A Nondisplaced fracture of proximal phalanx of right thumb, initial encounter for closed fracture (principal); W22.8XXA Striking against or struck by other objects, initial encounter; Y93.89 Activity, other specified; E78.5 Hyperlipidemia, unspecified; E11.9 Type 2 diabetes mellitus without complications; F32.9 Major depressive disorder, single episode, unspecified; D50.9 Iron deficiency anemia, unspecified; E66.9 Obesity, unspecified; F17.200 Nicotine dependence, unspecified, uncomplicated; Z68.34 Body mass index [BMI] 34.0-34.9, adult; Z79.84 Long term (current) use of oral hypoglycemic drugs; Z79.899 Other long term (current) drug therapy
CPT/HCPCS: 73130; 99283

== ENCOUNTER 2020-04-08 14:44 | Emergency (ER) | payer MEDICARE, SELFPAY ==
[2020-04-08 14:45] VITALS: BP 116/64; PULSE 78; RESP 18; TEMP 36.5; O2SAT 100; BMI 36.0
--- NOTE | 2020-04-08 15:29 | ED.VIS.GEN ---
History of Present Illness Chief Complaint: Headache Informant: Patient Onset: Yesterday Context: Gradual Onset Timing: Waxes and wanes Current Severity: Severe Maximum Severity: Severe Narrative: Patient present secondary to headache with nausea and vomiting. She states headache started yesterday. She took Advil migraine last evening and again at 11 AM this morning. She does report nausea and vomiting along with photophobia. She describes a throbbing sensation of the top of her head. She denies history of migraines. She denies any recent head injury. She states she does have an allergy to fresh cut grass and did mow the yard yesterday. She typically would break out in hives and not have any kind of a reaction similar to migraines. - Past Medical History (1) DVT (deep venous thrombosis) Status: Chronic Comment: below knee (2) Depression Status: Chronic (3) Hyperlipidemia Status: Chronic (4) Diabetes mellitus Status: Chronic Past Medical History - Allergies and Home Meds Allergies/Adverse Reactions: Allergies iron Adverse Reaction (Verified 04/19/19 00:17) Nausea oxycodone HCl [From Percocet] Adverse Reaction (Verified 04/19/19 00:17) Nausea sertraline HCl [From Zoloft] Adverse Reaction (Verified 04/19/19 00:17) Nausea BEES Allergy (Uncoded 04/19/19 00:17) Anaphylaxis PAPER TAPE Allergy (Uncoded 04/19/19 00:17) Rash Primary Care Physician: Lele Hillman DO [Primary Care Provider] - Prior records reviewed: Yes Surgical History: noncontributory, - - Multiple C-sections Smoking Status: Light Smoker (<10/day) - Family History Maternal Family History: Reports: No pertinent history Review of Systems General: Denies: Chills, Fever Eyes: Denies: Visual changes - bilaterally ENT: Denies: Bilateral ear pain Cardiovascular: Denies: Chest pain Respiratory: Denies: Dyspnea, Cough Gastrointestinal: Reports: Nausea, Vomiting. Denies: Abdominal pain Musculoskeletal: Denies: Swelling, Extremity Pain Neurological: Reports: Headache, Parasthesia - Bilateral hand paresthesias secondary to carpal tunnel. No new deficits. Hematologic: Denies: Easy bruising, Easy bleeding Allergy: Denies: Uticaria Physical Exam Vital Signs/Narrative: Vital Signs Temp Pulse Resp BP Pulse Ox 04/08/20 14:45 97.7 F L 78 18 116/64 100 Inital Vital Signs reviewed: Yes General: Well nourished, Well developed Head: Normocephalic ENT: Moist mucous membranes Neck: Supple Cardiovascular: Regular rate, Regular rhythm Respiratory: No distress, CTA bilaterally Abdomen: Soft, Nontender Skin: Normal color Neurological: Alert, Oriented x3, Normal Strength Psychological: Normal affect Diagnostic/Tx/Re-eval - Medical Decision Making Patient was given Toradol, Reglan, Benadryl, and IV fluids. On repeat evaluation she reports her headache is significantly improved. She will be discharged home with family at this time. It is noted the patient had a CTA of her head and neck a year ago that was unremarkable. ED Disposition - Plan for ED Patient: Disposition: Home or Assisted Living Diagnosis: Migraine Instructions: ED, Migraine (Classical) Referrals: Lele Hillman DO [Primary Care Provider] - As Needed
[2020-04-08] MEDS: Metoclopramide 10 MG/2 ML Vial IV (15:45)
[2020-04-08] MEDS: 0.9% Normal Saline 1,000 ML 999 ML IV (15:45)
[2020-04-08] MEDS: Ketorolac 30 MG/ML Syringe IV (15:45)
[2020-04-08] MEDS: DiphenhydrAMINE 50 MG/ML Syringe 25 MG IV (15:46)
[2020-04-08 17:02] VITALS: RESP 18
--- NOTE | 2020-04-08 17:04 | ED.RN ---
PT STATES THAT SHE TAKES HER INJECTABLES PRESCRIBED, HOWEVER SHE SPREADS HER PO MEDICATIONS THROUGH TWO NIGHTS PER WEEK SO TO MAKE THEM LAST LONGER. PT EDUCATED ABOUT TAKING MEDICATION PRESCRIBED, AND SHE VERBALIZED UNDERSTANDING BUT STATED THAT SHE IS ON A FIXED INCOME AND IS UNABLE TO AFFORD HER MEDICATIONS THEY ARE NOT COVERED AT AN AFFORDABLE [facility] THROUGH HER INSURANCE. REFERRAL TO CASE MANAGEMENT FOR HELP WITH ADDITIONAL SERVICES.
== END 2020-04-08 17:16 | disposition home or self-care (01) ==
PROVIDERS: Emergency Provider Emergency Medicine; PCP Student in an Organized Health Care Education/Training Program
DX: G43.909 Migraine, unspecified, not intractable, without status migrainosus (principal); F17.200 Nicotine dependence, unspecified, uncomplicated; E11.9 Type 2 diabetes mellitus without complications; E78.5 Hyperlipidemia, unspecified; Z86.718 Personal history of other venous thrombosis and embolism; Z79.84 Long term (current) use of oral hypoglycemic drugs; Z79.899 Other long term (current) drug therapy
CPT/HCPCS: 96361; 96374; 96375; 99285

== ENCOUNTER 2021-04-09 15:06 | Emergency (ER) | payer MEDICARE, SELFPAY ==
[2021-04-09 15:06] VITALS: BP 114/75; PULSE 74; RESP 16; TEMP 36.4; O2SAT 100; BMI 32.8
--- NOTE | 2021-04-09 15:26 | EX.ED.GENINJ ---
HPI History of Present Illness Chief Complaint: Laceration Narrative Narrative: Patient presents with left thumb and middle finger laceration that happened 12 hours ago. She tells me she has carpal tunnel syndrome and dropped a jar which then proceeded to cut her. No other injuries. Tetanus is up-to-date. PFSH PFSH Home Medications glimepiride 4 mg PO BID 01/09/17 [History Last Taken 01/09/17] sitagliptin [Januvia] 100 mg PO DAILY 01/09/17 [History Last Taken 01/09/17] venlafaxine 75 mg PO DAILY 07/02/17 [History Last Taken Unknown] cholecalciferol (vitamin D3) [Vitamin D] 2,000 unit PO DAILY 11/05/17 [History Last Taken Unknown] gabapentin [Neurontin] 100 mg PO TID 11/05/17 [History Last Taken Unknown] naproxen 500 mg PO BID PRN #20 tab 03/11/19 [Rx Last Taken Unknown] meloxicam 15 mg PO DAILY #15 tab 04/19/19 [Rx Last Taken Unknown] dicyclomine 20 mg PO TID 04/08/20 [History Last Taken Unknown] dulaglutide 0.75 mg SQ QWEEK 04/08/20 [History Last Taken Unknown] insulin degludec 12 unit SQ QHS 04/08/20 [History Last Taken Unknown] lovastatin 20 mg PO QHS 04/08/20 [History Last Taken Unknown] Allergy/AdvReac Type Severity Reaction Status Date / Time iron AdvReac Nausea Verified 04/09/21 15:06 oxycodone HCl [From Percocet] AdvReac Nausea Verified 04/09/21 15:06 sertraline HCl [From Zoloft] AdvReac Nausea Verified 04/09/21 15:06 BEES Allergy Anaphylaxis Uncoded 04/09/21 15:06 PAPER TAPE Allergy Rash Uncoded 04/09/21 15:06 Social History Smoking Status: Current some day smoker ROS ROS ED ROS Narrative Past medical history: Reviewed, ADHD, obesity, hyperlipidemia, diabetes Medications: Reviewed Social history: Noncontributory Review of systems: Musculoskeletal: First and third digit laceration Skin: As above Neurological: No weakness or paresthesias Hematologic: No easy bleeding or easy bruising EXAM Physical Exam Narrative Exam Narrative: Physical exam General: Patient does not appear in significant distress . Head: Normocephalic, Atraumatic Neck: No C-spine tenderness Cardiovascular: Normal distal pulses Back: Nontender, Normal Inspection. Extremities: Left thumb laceration 1 cm on the palm, left third digit laceration on the pulp 1.5 cm. Skin: As above Neurological: Normal strength and sensation Const Vital Signs: 04/09/21 15:06 Temperature 97.5 F L Temperature Source Temporal Pulse Rate 74 Respiratory Rate 16 Blood Pressure 114/75 Blood Pressure Mean 88 Pulse Ox 100 Oxygen Delivery Method Room Air PROC Procedures Lacerations Finger laceration: Length: 0.98 in Depth: Skin Shape: Linear Prep: Shure-Clens Laceration repair: Dermabond MDM MDM MDM Narrative Medical decision making narrative: Wound was cleaned and I applied some Dermabond, wound is approximated and hemostasis achieved. Patient will be discharged in stable condition Discharge Plan Triage Chief Complaint: Laceration ED Provider: Ruperto Marte Dx/Rx/DC Orders Clinical Impression: Finger laceration Instructions: ED Laceration, Extremity: Skin Glue Prescriptions: No Action glimepiride 4 MG tablet 4 mg PO BID RF: 0 sitagliptin [Januvia] 100 MG tablet 100 mg PO DAILY RF: 0 venlafaxine 37.5 MG Tab.Er.24 75 mg PO DAILY RF: 0 gabapentin [Neurontin] 100 MG capsule 100 mg PO TID RF: 0 cholecalciferol (vitamin D3) [Vitamin D3] 1,000 UNIT tablet 2,000 unit PO DAILY RF: 0 naproxen 500 MG tablet 500 mg PO BID PRN Qty: 20 RF: 0 meloxicam 15 MG tablet 15 mg PO DAILY Qty: 15 RF: 0 dicyclomine 20 MG tablet 20 mg PO TID RF: 0 lovastatin 20 MG tablet 20 mg PO QHS RF: 0 dulaglutide 0.75 MG/0.5 ML pen injector 0.75 mg SQ QWEEK RF: 0 insulin degludec 100 UNIT/ML solution 12 unit SQ QHS RF: 0 Primary Care Provider: Lele Hillman Referrals: Lele Hillman DO [Primary Care Provider] - 2 Days Disposition Disposition: Home, Self Care
== END 2021-04-09 16:11 | disposition home or self-care (01) ==
PROVIDERS: Emergency Provider Emergency Medicine; PCP Student in an Organized Health Care Education/Training Program
DX: S61.012A Laceration without foreign body of left thumb without damage to nail, initial encounter (principal); S61.213A Laceration without foreign body of left middle finger without damage to nail, initial encounter; F17.200 Nicotine dependence, unspecified, uncomplicated; X58.XXXA Exposure to other specified factors, initial encounter
CPT/HCPCS: G0168; 99283

== ENCOUNTER 2021-04-16 16:32 | Emergency (ER) | payer MEDICARE, SELFPAY ==
[2021-04-16 16:33] VITALS: BP 128/86; PULSE 109; RESP 18; TEMP 36.7; O2SAT 97; BMI 29.2
--- NOTE | 2021-04-16 17:40 | ED.RN ---
PT MONITORED FOR AN HOUR ON VITALS MACHINE. NO CHANGES OF SYMPTOMS. VITALS STABLE
--- NOTE | 2021-04-16 18:34 | EX.ED.DYSGE1 ---
HPI History of Present Illness Chief Complaint: Allergic Reaction Detail of Chief Complaint: Hymenoptera envenomation palm of right hand prior to arrival Informant: patient Onset/Context/Timing Onset: Hours Context: Sudden Onset Timing: Continuous Current Severity: Moderate Maximum Severity: Moderate Worsened by: Swelling of tongue Relieved by: Nothing Associated Symptoms Associated Symptoms: Lightheadedness and rash Narrative Prior similar symptoms: Yes Recent Illness/Hospitalization: No PFSH PFSH Medical History Diabetes DVT (deep venous thrombosis) Home Medications glimepiride 4 mg PO BID 01/09/17 [History Last Taken 01/09/17] venlafaxine 75 mg PO DAILY 07/02/17 [History Last Taken Unknown] cholecalciferol (vitamin D3) [Vitamin D] 2,000 unit PO DAILY 11/05/17 [History Last Taken Unknown] gabapentin [Neurontin] 100 mg PO TID 11/05/17 [History Last Taken Unknown] meloxicam 15 mg PO DAILY #15 tab 04/19/19 [Rx Last Taken Unknown] dicyclomine 20 mg PO TID 04/08/20 [History Last Taken Unknown] dulaglutide 0.75 mg SQ QWEEK 04/08/20 [History Last Taken Unknown] insulin degludec 48 unit SQ QHS 04/08/20 [History Last Taken Unknown] lovastatin 20 mg PO QHS 04/08/20 [History Last Taken Unknown] epinephrine 0.3 mg IM .once PRN #2 ea 04/16/21 [Rx Last Taken Unknown] Allergy/AdvReac Type Severity Reaction Status Date / Time iron AdvReac Nausea Verified 04/16/21 16:37 oxycodone HCl [From Percocet] AdvReac Nausea Verified 04/16/21 16:37 sertraline HCl [From Zoloft] AdvReac Nausea Verified 04/16/21 16:37 BEES Allergy Anaphylaxis Uncoded 04/16/21 16:37 PAPER TAPE Allergy Rash Uncoded 04/16/21 16:37 Social History (Updated 04/16/21 @ 18:[address] Tyler Kapoor MD) household members: none Smoking Status: Former smoker alcohol intake: current alcohol intake frequency: other substance use type: does not use ROS ROS ED Constitutional Constitutional ED: Denies chills, fever(s), subjective or sweats Eyes Eyes: Denies blurry vision, change in vision or diplopia ENT ENT ED: Denies ear pain, rhinorrhea or sore throat Cardiovascular Cardiovascular: Denies chest pain, orthopnea, palpitations or paroxysmal nocturnal dyspnea Respiratory/Chest Respiratory/Chest: Reports dyspnea; Denies cough, dyspnea on exertion, orthopnea, paroxysmal nocturnal dyspnea or sputum Gastrointestinal Gastrointestinal: Reports nausea; Denies abdominal pain, constipation, diarrhea or vomiting Genitourinary Genitourinary ED: Denies dysuria, hematuria or urinary frequency Musculoskeletal Musculoskeletal: Denies arthralgias, back pain, myalgias or neck pain Integumentary Reports rash; Denies abscess Neurologic Neurologic: Denies headache(s) or weakness Psychiatric Psychiatric: Denies depression Allergic/Immunologic Allergic/Immunologic ED: Reports mouth swelling and tongue swelling; Denies urticaria EXAM Physical Exam Const Vital Signs: 04/16/21 16:33 04/16/21 18:45 04/16/21 19:56 Temperature 98.0 F Temperature Source Temporal Pulse Rate 109 H 81 100 Respiratory Rate 18 20 H 18 Blood Pressure 128/86 H 121/72 H Blood Pressure Mean 100 88 Pulse Ox 97 97 99 Oxygen Delivery Method Room Air Room Air Room Air Positive well nourished, well developed and obese General Appearance ED: well developed Nutritional Appearance: obese HEENT Reports TM's clear and moist mucous membranes HEENT Narrative: There is evidence of angioedema. Tympanic Membrane ED: Yes TM's clear Eyes PERRL and EOMs intact bilaterally General Eye ED: Negative for pale conjunctiva or scleral icterus Neck no lymphadenopathy, supple and no JVD Neck Narrative: Trachea is midline. She has no inspiratory expiratory stridor. Chest Wall inspection of chest normal and palpation of chest normal Resp normal respiratory effort and clear to auscultation bilaterally Effort and Inspection: Negative for pain with movement Cardio regular rhythm, S1 normal heart sound, S2 normal heart sound and no murmurs Rate: tachycardic GI normal to inspection, nondistended, normoactive bowel sounds and non-tender Palpation: soft Back/Spine no CVA tenderness Cervical Spine: Negative for cervical spine tenderness Thoracic Spine / Upper Back: Negative for thoracic spinal tenderness or paraspinal muscle tenderness Extremity normal to inspection General Extremety ED: Negative for edema or tenderness General Extremity: Negative for edema Neuro oriented x3 and CN's II-XII intact bilaterally Sensorium / Orientation: alert Motor Exam: strength 5/5 throughout Psych mental status grossly normal Skin no wounds Rashes: rashes noted Erythematous rash noted palm of right hand. MDM MDM MDM Narrative Medical decision making narrative: With prior history of anaphylactic reaction and the fact that she has angioedema due to hymenoptera envenomation she was treated with epinephrine, Solu-Medrol, Benadryl and Pepcid. She will be observed for 3 to 4 hours. Patient was reassessed at 1845. There is slight swelling of the tongue. Rash resolved. Patient was reassessed at 193. Rash has resolved and angioedema has resolved. Patient was reassessed at 2044. She has no symptoms and no findings. She was discharged with prescription for EpiPen. Critical Care Time Critical Care Time: Yes Critical care time (excluding procedures): 30-74 minutes (32 minutes), Including time spent: (, Physical, documentation, treatment for life-threatening emergency), Discussing w/Patient &/or Family/Aut[employer] Serv[employer] and Performing Direct Patient Care at Bedside Discharge Plan Triage Chief Complaint: Allergic Reaction ED Provider: Tyler Kapoor Dx/Rx/DC Orders Clinical Impression: Allergic angioedema, Allergic reaction to bee sting Prescriptions: New epinephrine 0.3 mg/0.3 mL auto-injector 0.3 mg IM .once PRN (Reason: anaphylaxis) Qty: 2 RF: 0 No Action glimepiride 4 MG tablet 4 mg PO BID RF: 0 venlafaxine 37.5 MG tablet extended release 24hr 75 mg PO DAILY RF: 0 gabapentin [Neurontin] 100 MG capsule 100 mg PO TID RF: 0 cholecalciferol (vitamin D3) [Vitamin D3] 1,000 UNIT tablet 2,000 unit PO DAILY RF: 0 meloxicam 15 MG tablet 15 mg PO DAILY Qty: 15 RF: 0 dicyclomine 20 MG tablet 20 mg PO TID RF: 0 lovastatin 20 MG tablet 20 mg PO QHS RF: 0 dulaglutide 0.75 MG/0.5 ML pen injector 0.75 mg SQ QWEEK RF: 0 insulin degludec 100 UNIT/ML solution 48 unit SQ QHS RF: 0 Primary Care Provider: Lele Hillman Referrals: Lele Hillman DO [Primary Care Provider] - As Needed Disposition Disposition: Home, Self Care
[2021-04-16 18:45] VITALS: PULSE 81; RESP 20; O2SAT 97
[2021-04-16] MEDS: Famotidine 200 MG/20 ML MDV 20 MG in 0.9% Normal Saline (Pres. free 8 ML 300 MG IV (18:47)
[2021-04-16] MEDS: MethylPREDNISolone 125 MG/2 ML Vial IV (18:50)
[2021-04-16] MEDS: DiphenhydrAMINE 50 MG/ML Syringe 25 MG IV (18:51)
[2021-04-16 19:56] VITALS: BP 121/72; PULSE 100; RESP 18; O2SAT 99
[2021-04-16 21:14] VITALS: BP 135/79; PULSE 81; RESP 16; O2SAT 99
--- NOTE | 2021-04-16 21:20 | ED.RN ---
THIS NURSE REVIEWED D/C INSTRUCTIONS WITH PT. PT VERBALIZED UNDERSTANDING OF INSTRUCTIONS. IV D/C. IV CATHETER INTACT. PT TOLERATED WELL. P
== END 2021-04-16 21:20 | disposition home or self-care (01) ==
PROVIDERS: Emergency Provider Emergency Medicine; PCP Student in an Organized Health Care Education/Training Program
DX: T78.3XXA Angioneurotic edema, initial encounter (principal); T63.441A Toxic effect of venom of bees, accidental (unintentional), initial encounter; Z87.891 Personal history of nicotine dependence; E11.9 Type 2 diabetes mellitus without complications; Z79.4 Long term (current) use of insulin; Z79.899 Other long term (current) drug therapy
CPT/HCPCS: 96372; 96374; 96375; 99284; A4216; J3490

== ENCOUNTER 2021-04-24 16:20 | Emergency (ER) | payer MEDICARE, SELFPAY ==
[2021-04-24 16:20] VITALS: BP 130/87; PULSE 103; RESP 18; TEMP 36.6; O2SAT 95; BMI 32.5
[2021-04-24 16:29] VITALS: BP 119/67; PULSE 96; RESP 14; O2SAT 98
[2021-04-24] MEDS: DiphenhydrAMINE 50 MG/ML Syringe 25 MG IV (16:45)
[2021-04-24] MEDS: MethylPREDNISolone 125 MG/2 ML Vial IV (16:45)
[2021-04-24] MEDS: Famotidine 200 MG/20 ML MDV 20 MG in 0.9% Normal Saline (Pres. free 8 ML 300 MG IV (17:11)
[2021-04-24 17:31] VITALS: BP 112/61; PULSE 92; RESP 18; O2SAT 97
--- NOTE | 2021-04-24 18:03 | EX.ED.DYSGE1 ---
HPI History of Present Illness Chief Complaint: Allergic Reaction Detail of Chief Complaint: Hymenoptera envenomation history of anaphylaxis with angioedema Informant: patient Onset/Context/Timing Onset: Hours (Stung several minutes prior to presentation) Context: Sudden Onset Quality: Presents because of sensation of tickling in throat and anxiousness Location: Not applicable Current Severity: Mild Maximum Severity: Mild Worsened by: Did not feel prescription for epinephrine administered this past week Relieved by: Not applicable Associated Symptoms Associated Symptoms: No other symptoms Narrative Narrative: Patient with anaphylactic reaction to hymenoptera venom [facility]. Patient presents because she was stung. She did not get her prescription for epinephrine filled when she was seen by me this past week. She has pharyngeal symptoms only. She has no respiratory, GI, orthostatic, or dermatologic lesions. Prior similar symptoms: Yes Recent Illness/Hospitalization: Yes [facility] Medical History Anxiety Depression Diabetes DVT (deep venous thrombosis) Smoker Substance abuse Home Medications glimepiride 4 mg PO BID 01/09/17 [History Last Taken 01/09/17] venlafaxine 75 mg PO DAILY 07/02/17 [History Last Taken Unknown] cholecalciferol (vitamin D3) [Vitamin D] 2,000 unit PO DAILY 11/05/17 [History Last Taken Unknown] gabapentin [Neurontin] 100 mg PO TID 11/05/17 [History Last Taken Unknown] meloxicam 15 mg PO DAILY #15 tab 04/19/19 [Rx Last Taken Unknown] dicyclomine 20 mg PO TID 04/08/20 [History Last Taken Unknown] dulaglutide 0.75 mg SQ QWEEK 04/08/20 [History Last Taken Unknown] insulin degludec 48 unit SQ QHS 04/08/20 [History Last Taken Unknown] lovastatin 20 mg PO QHS 04/08/20 [History Last Taken Unknown] epinephrine 0.3 mg IM .once PRN #2 ea 04/16/21 [Rx Last Taken Unknown] Allergy/AdvReac Type Severity Reaction Status Date / Time iron AdvReac Nausea Verified 04/24/21 16:22 oxycodone HCl [From Percocet] AdvReac Nausea Verified 04/24/21 16:22 sertraline HCl [From Zoloft] AdvReac Nausea Verified 04/24/21 16:22 BEES Allergy Anaphylaxis Uncoded 04/24/21 16:22 PAPER TAPE Allergy Rash Uncoded 04/24/21 16:22 Surgical History History of delivery History of partial hysterectomy Social History household members: none Smoking Status: Former smoker alcohol intake: current alcohol intake frequency: other substance use type: does not use ROS ROS ED Constitutional Constitutional ED: Denies chills, fever(s), subjective or sweats Eyes Eyes: Denies blurry vision, change in vision or diplopia ENT ENT ED: Denies ear pain, rhinorrhea or sore throat Cardiovascular Cardiovascular: Reports palpitations; Denies chest pain or racing heartbeat Respiratory/Chest Respiratory/Chest: Reports dyspnea; Denies cough, dyspnea on exertion or sputum Gastrointestinal Gastrointestinal: Denies abdominal pain, diarrhea, nausea or vomiting Musculoskeletal Musculoskeletal: Denies arthralgias, myalgias or neck pain Integumentary Denies rash Neurologic Neurologic: Denies headache(s) or weakness Hematologic/Lymphatic Hematologic/Lymphatic: Denies anemia, easy bleeding or easy bruising Allergic/Immunologic Allergic/Immunologic ED: Reports tongue swelling; Denies urticaria EXAM Physical Exam Const Vital Signs: 04/24/21 16:20 04/24/21 16:29 04/24/21 17:31 Temperature 97.9 F Temperature Source Temporal Pulse Rate 103 H 96 92 Respiratory Rate 18 14 18 Blood Pressure 130/87 H 119/67 112/61 Blood Pressure Mean 101 84 78 Pulse Ox 95 98 97 Oxygen Delivery Method Room Air Room Air Room Air 04/24/21 19:06 Temperature Temperature Source Pulse Rate 104 H Respiratory Rate 28 H Blood Pressure 112/67 Blood Pressure Mean 82 Pulse Ox 97 Oxygen Delivery Method Room Air Positive well nourished, well developed and obese General Appearance ED: well developed and NAD Nutritional Appearance: obese HEENT HEENT Narrative: Head is atraumatic normocephalic. There is no swelling of the lips or uvula. There may be slight thickening or swelling of the tongue. Ears normal. Nares patent. Eyes PERRL and EOMs intact bilaterally General Eye ED: Negative for pale conjunctiva or scleral icterus Neck no lymphadenopathy, supple and no JVD Neck Narrative: Trachea is midline. There is no inspiratory expiratory stridor. Chest Wall palpation of chest normal Resp normal respiratory effort and clear to auscultation bilaterally Cardio regular rate, regular rhythm, S1 normal heart sound, S2 normal heart sound and no murmurs GI normal to inspection, nondistended, normoactive bowel sounds and non-tender Palpation: soft Back/Spine no CVA tenderness Extremity normal to inspection General Extremety ED: Negative for edema General Extremity: Negative for edema Neuro oriented x3, CN's II-XII intact bilaterally and no sensory deficits noted Sensorium / Orientation: alert Motor Exam: strength 5/5 throughout Psych mental status grossly normal Skin no rashes or lesions noted and no wounds MDM MDM MDM Narrative Medical decision making narrative: Patient on Afrin, Solu-Medrol, IV Pepcid and IV Benadryl in light of her past medical history and recent treatment with angioedema due to hymenoptera envenomation. Patient was observed for 3.5 hours. Her symptoms have totally resolved. She will be discharged home. She states she will get the EpiPen filled. Discharge Plan Triage Chief Complaint: Allergic Reaction ED Provider: Tyler Kapoor Dx/Rx/DC Orders Clinical Impression: Allergic angioedema Instructions: ED General Allergic Reactions, ED Angioedema Prescriptions: No Action glimepiride 4 MG tablet 4 mg PO BID RF: 0 venlafaxine 37.5 MG tablet extended release 24hr 75 mg PO DAILY RF: 0 gabapentin [Neurontin] 100 MG capsule 100 mg PO TID RF: 0 cholecalciferol (vitamin D3) [Vitamin D3] 1,000 UNIT tablet 2,000 unit PO DAILY RF: 0 meloxicam 15 MG tablet 15 mg PO DAILY Qty: 15 RF: 0 dicyclomine 20 MG tablet 20 mg PO TID RF: 0 lovastatin 20 MG tablet 20 mg PO QHS RF: 0 dulaglutide 0.75 MG/0.5 ML pen injector 0.75 mg SQ QWEEK RF: 0 insulin degludec 100 UNIT/ML solution 48 unit SQ QHS RF: 0 epinephrine 0.3 mg/0.3 mL auto-injector 0.3 mg IM .once PRN (Reason: anaphylaxis) Qty: 2 RF: 0 Primary Care Provider: Lele Hillman Referrals: Lele Hillman DO [Primary Care Provider] - As Needed Disposition Disposition: Home, Self Care
[2021-04-24 19:06] VITALS: BP 112/67; PULSE 104; RESP 28; O2SAT 97
[2021-04-24 20:03] VITALS: BP 117/76; PULSE 101; RESP 18; O2SAT 96
== END 2021-04-24 20:04 | disposition home or self-care (01) ==
PROVIDERS: Emergency Provider Emergency Medicine; PCP Student in an Organized Health Care Education/Training Program
DX: T78.3XXA Angioneurotic edema, initial encounter (principal); E11.9 Type 2 diabetes mellitus without complications; F32.9 Major depressive disorder, single episode, unspecified; Z79.4 Long term (current) use of insulin; Z79.899 Other long term (current) drug therapy; Z87.891 Personal history of nicotine dependence
CPT/HCPCS: 96372; 96374; 96375; 99283; A4216; J3490

== ENCOUNTER 2021-05-09 22:07 | Emergency (ER) | payer MEDICARE, SELFPAY ==
[2021-05-09 22:07] VITALS: BP 143/87; PULSE 79; RESP 18; TEMP 36.2; O2SAT 100; BMI 30.9
[2021-05-09 22:08] VITALS: BP 143/87; PULSE 79; RESP 18; TEMP 36.2; O2SAT 100
[2021-05-09 22:48] LABS: Mucous, Urine 0 SEEN /hpf (<or=2+); Squamous Epithelial Cells - UA 0 SEEN /hpf (5-10)
[2021-05-09 22:53] LABS: Color, Urine Yellow (Yellow); Glucose, Dipstick 1000 mg/dl (Normal); Ketone-Dipstick 5 mg/dl (Negative); Leukocyte Esterase-Dipstick 500 /ul (Negative); Nitrite-Dipstick Negative (Negative); Occult Blood-Urine 250 /ul (Negative); Protein-Dipstick 100 mg/dl (Negative); Specific Gravity, Urine 1.015 (1.002-1.030); Urine Bilirubin Dipstick Negative (Negative); Urine Clarity Cloudy (Clear); Urine Urobilinogen Normal (Normal)
[2021-05-09 22:59] LABS: White Blood Cells >100 SEEN /hpf (0-5)
[2021-05-09 23:00] LABS: Bacteria RARE /hpf (None Seen); Red Blood Cells-Urine 25-50 SEEN /hpf (0-5)
--- NOTE | 2021-05-09 23:35 | EX.ED.DYSGE1 ---
HPI History of Present Illness Chief Complaint: Complaint Informant: patient Onset/Context/Timing Onset: Yesterday Context: Gradual Onset Timing: Continuous Quality: Pressure Location: Suprapubic Worsened by: Nothing Relieved by: Nothing Narrative Narrative: Patient presents with suprapubic pressure, urinary urgency, and urinary frequency that began yesterday. Patient states she has pressure in her lower abdomen. Patient states nothing makes it worse and nothing makes it better. Patient states she feels like she has pressure and has to urinate. Patient states she urinates but only urinates small amounts. Patient states she is going more frequently. Patient denies any dysuria. Patient denies any nausea or vomiting. Patient denies any back pain. Patient denies any fevers or chills. PFSH [facility] Medical History Anxiety Depression Diabetes DVT (deep venous thrombosis) Smoker Substance abuse Home Medications glimepiride 4 mg PO BID 01/09/17 [History Last Taken 01/09/17] venlafaxine 75 mg PO DAILY 07/02/17 [History Last Taken Unknown] cholecalciferol (vitamin D3) [Vitamin D] 2,000 unit PO DAILY 11/05/17 [History Last Taken Unknown] gabapentin [Neurontin] 100 mg PO TID 11/05/17 [History Last Taken Unknown] meloxicam 15 mg PO DAILY #15 tab 04/19/19 [Rx Last Taken Unknown] dicyclomine 20 mg PO TID 04/08/20 [History Last Taken Unknown] dulaglutide 0.75 mg SQ QWEEK 04/08/20 [History Last Taken Unknown] insulin degludec 48 unit SQ QHS 04/08/20 [History Last Taken Unknown] lovastatin 20 mg PO QHS 04/08/20 [History Last Taken Unknown] epinephrine 0.3 mg IM .once PRN #2 ea 04/16/21 [Rx Last Taken Unknown] cephalexin 500 mg PO Q6 #12 capsule 05/09/21 [Rx Last Taken Unknown] Allergy/AdvReac Type Severity Reaction Status Date / Time iron AdvReac Nausea Verified 05/09/21 22:08 oxycodone HCl [From Percocet] AdvReac Nausea Verified 05/09/21 22:08 sertraline HCl [From Zoloft] AdvReac Nausea Verified 05/09/21 22:08 BEES Allergy Anaphylaxis Uncoded 05/09/21 22:08 PAPER TAPE Allergy Rash Uncoded 05/09/21 22:08 Surgical History History of delivery History of partial hysterectomy Social History household members: none Smoking Status: Former smoker alcohol intake: current alcohol intake frequency: other substance use type: does not use ROS ROS ED Constitutional Constitutional ED: Denies chills or fever(s) Eyes Eyes: Denies blurry vision or change in vision ENT ENT ED: Denies rhinorrhea or sore throat Cardiovascular Cardiovascular: Denies chest pain or palpitations Respiratory/Chest Respiratory/Chest: Denies cough or dyspnea Gastrointestinal Gastrointestinal: Reports abdominal pain; Denies nausea or vomiting Genitourinary Genitourinary ED: Reports urinary frequency; Denies dysuria or hematuria Musculoskeletal Musculoskeletal: Denies back pain or neck pain Integumentary Reports rash; Denies abscess Neurologic Neurologic: Denies headache(s) or weakness Allergic/Immunologic Allergic/Immunologic ED: Denies mouth swelling or urticaria EXAM Physical Exam Const Vital Signs: 05/09/21 22:07 05/09/21 22:08 Temperature 97.1 F L 97.1 F L Temperature Source Temporal Temporal Pulse Rate 79 79 Respiratory Rate 18 18 Blood Pressure 143/87 H 143/87 H Blood Pressure Mean 105 105 Pulse Ox 100 100 Positive well nourished and well developed General Appearance ED: well developed HEENT Reports moist mucous membranes Neck supple and no JVD Resp normal respiratory effort and clear to auscultation bilaterally Cardio regular rate and regular rhythm GI normal to inspection, nondistended, normoactive bowel sounds Palpation: soft and tender suprapubic (Mild); Negative for guarding or rebound tenderness present Extremity normal to inspection Neuro oriented x3, CN's II-XII intact bilaterally and no sensory deficits noted Sensorium / Orientation: alert Motor Exam: strength 5/5 throughout Psych mental status grossly normal MDM MDM MDM Narrative Medical decision making narrative: Urinalysis was obtained. Leukocyte esterase was 500. There are 25-50 red blood cells and greater than 100 white blood cells. Glucose was 1000. Occult blood was 250. Patient was advised of her findings. Patient was given a dose of Keflex here. Patient was given a prescription for Keflex. Patient was also given a prescription for Pyridium. Patient was instructed to follow-up with her primary care physician in 5 to 7 days. Patient understood and was agreeable with the plan. All questions were answered. Lab Data Labs: Laboratory Results - last 24 hr 05/09/21 22:45 Urine Color Yellow Urine Clarity Cloudy Urine pH 7.0 Ur Specific [place] 1.015 Urine Protein 100 H Urine Glucose (UA) 1000 H Urine Ketones 5 H Urine Occult Blood 250 H Urine Nitrite Negative Urine Bilirubin Negative Urine Urobilinogen Normal Ur Leukocyte Esterase 500 H Urine RBC 25-50 SEEN Urine WBC >100 SEEN Ur Squamous Epith Cells 0 SEEN Urine Bacteria RARE Urine Mucus 0 SEEN Discharge Plan Triage Chief Complaint: Complaint ED Provider: Boyd Johnson Dx/Rx/DC Orders Clinical Impression: Urinary tract infection Instructions: ED CYSTITIS Female Adult Prescriptions: New cephalexin [cephalexin] 500 MG capsule 500 mg PO Q6 Qty: 12 RF: 0 No Action glimepiride 4 MG tablet 4 mg PO BID RF: 0 venlafaxine 37.5 MG tablet extended release 24hr 75 mg PO DAILY RF: 0 gabapentin [Neurontin] 100 MG capsule 100 mg PO TID RF: 0 cholecalciferol (vitamin D3) [Vitamin D3] 1,000 UNIT tablet 2,000 unit PO DAILY RF: 0 meloxicam 15 MG tablet 15 mg PO DAILY Qty: 15 RF: 0 dicyclomine 20 MG tablet 20 mg PO TID RF: 0 lovastatin 20 MG tablet 20 mg PO QHS RF: 0 dulaglutide 0.75 MG/0.5 ML pen injector 0.75 mg SQ QWEEK RF: 0 insulin degludec 100 UNIT/ML solution 48 unit SQ QHS RF: 0 epinephrine 0.3 mg/0.3 mL auto-injector 0.3 mg IM .once PRN (Reason: anaphylaxis) Qty: 2 RF: 0 Primary Care Provider: Lele Hillman Referrals: Lele Hillman DO [Primary Care Provider] - 3-5 Days Disposition Disposition: Home, Self Care
[2021-05-09] MEDS: Cephalexin 500 MG Capsule PO (23:50)
== END 2021-05-09 23:52 | disposition home or self-care (01) ==
PROVIDERS: Student in an Organized Health Care Education/Training Program; Emergency Provider Emergency Medicine; PCP Student in an Organized Health Care Education/Training Program
DX: N39.0 Urinary tract infection, site not specified (principal); E11.9 Type 2 diabetes mellitus without complications; F32.9 Major depressive disorder, single episode, unspecified; F41.9 Anxiety disorder, unspecified; Z79.4 Long term (current) use of insulin; Z79.899 Other long term (current) drug therapy; Z87.891 Personal history of nicotine dependence
CPT/HCPCS: 81001; 99283

== ENCOUNTER 2021-06-07 21:54 | Emergency (ER) | payer MEDICARE, SELFPAY ==
[2021-06-07 21:54] VITALS: BP 143/113; PULSE 104; RESP 16; TEMP 36.1; O2SAT 99; BMI 31.6
[2021-06-07 22:53] VITALS: BP 126/87; PULSE 83; RESP 16; TEMP 36.9; O2SAT 100
[2021-06-07] MEDS: 0.9% Normal Saline 1,000 ML 999 ML IV (23:17)
[2021-06-07] MEDS: DiphenhydrAMINE 50 MG/ML Syringe 25 MG IV (23:18)
[2021-06-07] MEDS: Ketorolac 30 MG/ML Syringe IV (23:18)
[2021-06-07] MEDS: Metoclopramide 10 MG/2 ML Vial IV (23:18)
--- NOTE | 2021-06-07 23:19 | EX.ED.VIS.HA ---
HPI History of Present Illness Chief Complaint: Headache Informant: patient Onset/Context/Timing Onset: Today Context: Gradual Quality -Headache: Positive for Throbbing Current Severity: Severe Maximum Severity: Severe Associated Symptoms/Injury Associated Symptoms: Positive for Nausea, Vomiting, Blurred Vision and Photophobia; Negative for Fever Narrative Narrative: Patient presents secondary to migraine headache. Headache is diffuse in location and severe. She states normally she takes Advil migraine but she did not have any available. She denies URI symptoms or head injury. She does have a history of similar migraines but states this one is more severe. [facility] Medical History Anxiety Depression Diabetes DVT (deep venous thrombosis) Smoker Substance abuse Home Medications glimepiride 4 mg PO BID 01/09/17 [History Last Taken 01/09/17] venlafaxine 75 mg PO DAILY 07/02/17 [History Last Taken Unknown] cholecalciferol (vitamin D3) [Vitamin D] 2,000 unit PO DAILY 11/05/17 [History Last Taken Unknown] gabapentin [Neurontin] 100 mg PO TID 11/05/17 [History Last Taken Unknown] meloxicam 15 mg PO DAILY #15 tab 04/19/19 [Rx Last Taken Unknown] dulaglutide [Trulicity] 0.75 mg SQ QWEEK 04/08/20 [History Last Taken Unknown] insulin degludec 48 unit SQ QHS 04/08/20 [History Last Taken Unknown] lovastatin 20 mg PO QHS 04/08/20 [History Last Taken Unknown] epinephrine 0.3 mg IM .once PRN #2 ea 04/16/21 [Rx Last Taken Unknown] phenazopyridine [Pyridium] 200 mg PO TID 2 Days #6 tab 05/09/21 [Rx Last Taken Unknown] Allergy/AdvReac Type Severity Reaction Status Date / Time iron AdvReac Nausea Verified 06/07/21 21:56 oxycodone HCl [From Percocet] AdvReac Nausea Verified 06/07/21 21:56 sertraline HCl [From Zoloft] AdvReac Nausea Verified 06/07/21 21:56 BEES Allergy Anaphylaxis Uncoded 06/07/21 21:56 PAPER TAPE Allergy Rash Uncoded 06/07/21 21:56 Surgical History History of delivery History of partial hysterectomy Social History household members: none Smoking Status: Former smoker alcohol intake: current alcohol intake frequency: other substance use type: does not use ROS ROS ED Constitutional Constitutional ED: Denies chills or fever(s) Eyes Eyes: Reports blurry vision; Denies change in vision ENT ENT ED: Denies sore throat Cardiovascular Cardiovascular: Denies chest pain Respiratory/Chest Respiratory/Chest: Denies cough or dyspnea Gastrointestinal Gastrointestinal: Reports nausea and vomiting; Denies abdominal pain or diarrhea Genitourinary Genitourinary ED: Denies dysuria Musculoskeletal Musculoskeletal: Denies back pain Integumentary Denies rash Neurologic Neurologic: Reports headache(s); Denies weakness Psychiatric Psychiatric: Denies anxiety or depression Endocrine Endocrinology: Denies polydipsia or polyuria Allergic/Immunologic Allergic/Immunologic ED: Denies urticaria EXAM Physical Exam Const Vital Signs: 06/07/21 21:54 06/07/21 22:53 06/07/21 23:50 Temperature 97 F L 98.4 F Temperature Source Temporal Temporal Pulse Rate 104 H 83 98 Respiratory Rate 16 16 Blood Pressure 143/113 H 126/87 H 157/112 H Blood Pressure Mean 123 100 127 Pulse Ox 99 100 Oxygen Delivery Method Room Air Room Air 06/08/21 00:27 Temperature Temperature Source Pulse Rate Respiratory Rate 17 Blood Pressure 138/78 H Blood Pressure Mean 98 Pulse Ox Oxygen Delivery Method Positive well nourished and well developed General Appearance ED: well developed HEENT Reports normocephalic atraumatic Eyes PERRL and EOMs intact bilaterally Neck supple and no meningeal signs Resp normal respiratory effort and clear to auscultation bilaterally Cardio regular rate and regular rhythm GI non-tender Auscultation: normoactive bowel sounds Palpation: soft Extremity normal to inspection Neuro oriented x3 and no sensory deficits noted Sensorium / Orientation: awake and alert Motor Exam: strength 5/5 throughout Psych mental status grossly normal Skin Lesions: no lesions Rashes: no rashes MDM MDM MDM Narrative Medical decision making narrative: Patient is given Toradol, Reglan, Benadryl, IV fluids. Treatment and Re-Evaluation Comments:: On repeat evaluation headache significantly improved. She is comfortable with discharge to home. Neuro exam remains normal. Discharge Plan Triage Chief Complaint: Headache ED Provider: Neelima Nino Dx/Rx/DC Orders Clinical Impression: Migraine Instructions: ED, Migraine (Classical) Prescriptions: No Action glimepiride 4 MG tablet 4 mg PO BID RF: 0 venlafaxine 37.5 MG tablet extended release 24hr 75 mg PO DAILY RF: 0 gabapentin [Neurontin] 100 MG capsule 100 mg PO TID RF: 0 cholecalciferol (vitamin D3) [Vitamin D3] 1,000 UNIT tablet 2,000 unit PO DAILY RF: 0 meloxicam 15 MG tablet 15 mg PO DAILY Qty: 15 RF: 0 lovastatin 20 MG tablet 20 mg PO QHS RF: 0 Trulicity 0.75 MG/0.5 ML pen injector 0.75 mg SQ QWEEK RF: 0 insulin degludec 100 UNIT/ML solution 48 unit SQ QHS RF: 0 epinephrine 0.3 mg/0.3 mL auto-injector 0.3 mg IM .once PRN (Reason: anaphylaxis) Qty: 2 RF: 0 phenazopyridine [Pyridium] 200 MG tablet 200 mg PO TID 2 Days Qty: 6 RF: 0 Primary Care Provider: Lele Hillman Referrals: Lele Hillman DO [Primary Care Provider] - As Needed Disposition Disposition: Home, Self Care Discharge Date/Time: 06/08/21 00:27
[2021-06-07 23:50] VITALS: BP 157/112; PULSE 98
[2021-06-08 00:27] VITALS: BP 138/78; RESP 17
== END 2021-06-08 00:27 | disposition home or self-care (01) ==
PROVIDERS: Emergency Provider Emergency Medicine; PCP Student in an Organized Health Care Education/Training Program
DX: G43.909 Migraine, unspecified, not intractable, without status migrainosus (principal); E11.9 Type 2 diabetes mellitus without complications; F32.9 Major depressive disorder, single episode, unspecified; F41.9 Anxiety disorder, unspecified; Z79.4 Long term (current) use of insulin; Z79.899 Other long term (current) drug therapy; Z87.891 Personal history of nicotine dependence; Z86.718 Personal history of other venous thrombosis and embolism
CPT/HCPCS: 96374; 96375; 99283; J7030

== ENCOUNTER 2021-07-29 19:49 | Emergency (ER) | payer MEDICARE, SELFPAY ==
[2021-07-29 19:50] VITALS: BP 121/87; PULSE 78; RESP 18; TEMP 36.7; O2SAT 98; BMI 31.0
--- NOTE | 2021-07-29 20:38 | EDS_ITS ---
HPI History of Present Illness Chief Complaint: Abscess Narrative Narrative: 51-year-old female presenting for evaluation of her umbilicus. She states that she stuck a Q-tip in this and was cleaning it out and noticed a yellow substance on the Q-tip and when she smelled it it did not smell good. She states it was not draining before this and she has not had any drainage after this. Is not painful. Has had no systemic signs or symptoms. [facility] Medical History Anxiety Depression Diabetes DVT (deep venous thrombosis) Smoker Substance abuse Home Medications glimepiride 4 mg PO BID 01/09/17 [History Last Taken 01/09/17] venlafaxine 75 mg PO DAILY 07/02/17 [History Last Taken Unknown] cholecalciferol (vitamin D3) [Vitamin D] 2,000 unit PO DAILY 11/05/17 [History Last Taken Unknown] gabapentin [Neurontin] 100 mg PO TID 11/05/17 [History Last Taken Unknown] meloxicam 15 mg PO DAILY #15 tab 04/19/19 [Rx Last Taken Unknown] dulaglutide [Trulicity] 0.75 mg SQ QWEEK 04/08/20 [History Last Taken Unknown] insulin degludec 48 unit SQ QHS 04/08/20 [History Last Taken Unknown] lovastatin 20 mg PO QHS 04/08/20 [History Last Taken Unknown] epinephrine 0.3 mg IM .once PRN #2 ea 04/16/21 [Rx Last Taken Unknown] phenazopyridine [Pyridium] 200 mg PO TID 2 Days #6 tab 05/09/21 [Rx Last Taken Unknown] Allergy/AdvReac Type Severity Reaction Status Date / Time iron AdvReac Nausea Verified 07/29/21 19:52 oxycodone HCl [From Percocet] AdvReac Nausea Verified 07/29/21 19:52 sertraline HCl [From Zoloft] AdvReac Nausea Verified 07/29/21 19:52 BEES Allergy Anaphylaxis Uncoded 07/29/21 19:52 PAPER TAPE Allergy Rash Uncoded 07/29/21 19:52 Surgical History History of delivery History of partial hysterectomy Social History household members: none Smoking Status: Former smoker alcohol intake: current alcohol intake frequency: other substance use type: does not use ROS ROS ED Constitutional Constitutional ED: Denies chills, fever(s) or sweats Eyes Eyes: Denies blurry vision or change in vision ENT ENT ED: Denies ear pain or sore throat Cardiovascular Cardiovascular: Denies chest pain, palpitations or racing heartbeat Respiratory/Chest Respiratory/Chest: Denies cough, dyspnea or sputum Gastrointestinal Gastrointestinal: Denies abdominal pain, constipation, diarrhea, nausea or vomiting Genitourinary Genitourinary ED: Denies dysuria, hematuria or urinary frequency Musculoskeletal Musculoskeletal: Denies arthralgias, myalgias or neck pain Integumentary Reports other Details: Yellow waxy substance and umbilicus ; Denies abscess, Abrasions or rash Neurologic Neurologic: Denies headache(s), paresthesias or weakness Psychiatric Psychiatric: Denies anxiety, depression, suicidal ideation or suicidal thoughts Endocrine Endocrinology: Denies polydipsia or polyuria EXAM Physical Exam Const Vital Signs: 07/29/21 19:50 07/29/21 20:44 Temperature 98.0 F 97.4 F L Temperature Source Temporal Pulse Rate 78 88 Respiratory Rate 18 14 Blood Pressure 121/87 H 128/62 H Blood Pressure Mean 98 Pulse Ox 98 98 Oxygen Delivery Method Room Air Positive well nourished General Appearance ED: NAD HEENT Reports moist mucous membranes Negative for trauma Eyes PERRL and EOMs intact bilaterally Resp normal respiratory effort and clear to auscultation bilaterally Cardio regular rate and regular rhythm Skin Skin Narrative: Umbilicus is not tender. There is no drainage. There is a very faint erythema inside the umbilicus. No crepitance. MDM MDM MDM Narrative Medical decision making narrative: Evaluated the patient's umbilicus I do not believe this is grossly infected. Does not look like it cellulitic. It is not draining anything I do not think there is an abscess here. We will treat this with bacitracin and the umbilicus. She will use Neosporin or bacitracin at home. She can follow-up with her PCP to ensure resolution. Impression: 1. Umbilical discharge Discharge Plan Triage Chief Complaint: Abscess ED Provider: Gumaro Yap Dx/Rx/DC Orders Instructions: ED No Diagnosis Prescriptions: No Action glimepiride 4 MG tablet 4 mg PO BID RF: 0 venlafaxine 37.5 MG tablet extended release 24hr 75 mg PO DAILY RF: 0 gabapentin [Neurontin] 100 MG capsule 100 mg PO TID RF: 0 cholecalciferol (vitamin D3) [Vitamin D3] 1,000 UNIT tablet 2,000 unit PO DAILY RF: 0 meloxicam 15 MG tablet 15 mg PO DAILY Qty: 15 RF: 0 lovastatin 20 MG tablet 20 mg PO QHS RF: 0 Trulicity 0.75 MG/0.5 ML pen injector 0.75 mg SQ QWEEK RF: 0 insulin degludec 100 UNIT/ML solution 48 unit SQ QHS RF: 0 epinephrine 0.3 mg/0.3 mL auto-injector 0.3 mg IM .once PRN (Reason: anaphylaxis) Qty: 2 RF: 0 phenazopyridine [Pyridium] 200 MG tablet 200 mg PO TID 2 Days Qty: 6 RF: 0 Primary Care Provider: Lele Hillman Referrals: Lele Hillman DO [Primary Care Provider] - Disposition Disposition: Home, Self Care Discharge Date/Time: 07/29/21 20:45
[2021-07-29] MEDS: BACITRACIN 15 GM Tube 1 APPLIC TOPICAL (20:42)
[2021-07-29 20:44] VITALS: BP 128/62; PULSE 88; RESP 14; TEMP 36.3; O2SAT 98
== END 2021-07-29 20:45 | disposition home or self-care (01) ==
PROVIDERS: Emergency Provider Student in an Organized Health Care Education/Training Program; PCP Student in an Organized Health Care Education/Training Program; Visit Provider Student in an Organized Health Care Education/Training Program
DX: R19.8 Other specified symptoms and signs involving the digestive system and abdomen (principal); E11.9 Type 2 diabetes mellitus without complications; Z79.4 Long term (current) use of insulin; Z87.891 Personal history of nicotine dependence; F32.A Depression, unspecified; F41.9 Anxiety disorder, unspecified; Z86.718 Personal history of other venous thrombosis and embolism; Z79.899 Other long term (current) drug therapy
CPT/HCPCS: 99282

== ENCOUNTER 2021-08-08 10:49 | Emergency (ER) | payer MEDICARE, SELFPAY ==
[2021-08-08 10:50] VITALS: BP 130/97; PULSE 104; RESP 18; TEMP 36.4; O2SAT 97; BMI 31.0
--- NOTE | 2021-08-08 11:09 | RAD_ITS ---
STUDY: X-RAY - CERVICAL SPINE REASON FOR EXAM: Female, 51 years old. Neck pain TECHNIQUE: AP and lateral view(s) of the cervical spine were obtained. COMPARISON: None FINDINGS: Normal anterior atlantoaxial articulation. Normal odontoid process. There is straightening of the normal cervical lordosis. Normal vertebral bodies and endplates. Normal disc space heights. Normal visualized intervertebral neuroforamina. The soft tissue structures are unremarkable. RAD/Cerv Spine 2 or 3 Views IMPRESSION: Straightening of the cervical spine which could be due to muscle spasm. No demonstrated acute changes. Electronically Signed: Esteban Zheng, at 12:30 EST Tel , Service support ,
--- NOTE | 2021-08-08 11:09 | RAD_ITS ---
STUDY: X-RAY - LEFT SHOULDER REASON FOR EXAM: Female, 51 years old. Shoulder pain TECHNIQUE: 3 view(s) of the shoulder. COMPARISON: None. FINDINGS: Normal glenohumeral articulation. Normal acromioclavicular joint. Normal acromion. Normal humeral head and visualized proximal humerus. The soft tissue structures are unremarkable. Normal visualized pulmonary apex. RAD/Shoulder min 2 Views IMPRESSION: Normal x-ray examination of the shoulder. Electronically Signed: Esteban Zheng, at 12:31 EST Tel , Service support ,
--- NOTE | 2021-08-08 11:11 | EDS_ITS ---
HPI History of Present Illness Chief Complaint: Upper Extremity Injury Narrative Narrative: 51-year-old female presenting with left shoulder pain. She states this is chronic. She states that it radiates from the medial aspect of the shoulder into the left trapezius and deltoid. Patient states it has been worse over the last 3 days. Patient states he has a pain management doctor named Dr. Gallego in the [place]. She sees him once a year. Patient is given gabapentin. Patient does not prescribe narcotics. Patient denies any injury. She states he does not work. She denies lifting anything heavy. She states that her pain is so bad is making her stutter. This pain is worse when she is moving her shoulder. She denies chest pain, shortness of breath, lightheadedness. [facility] Medical History Anxiety Depression Diabetes DVT (deep venous thrombosis) Smoker Substance abuse Home Medications glimepiride 4 mg PO BID 01/09/17 [History Last Taken 01/09/17] venlafaxine 75 mg PO DAILY 07/02/17 [History Last Taken Unknown] cholecalciferol (vitamin D3) [Vitamin D] 2,000 unit PO DAILY 11/05/17 [History Last Taken Unknown] gabapentin [Neurontin] 100 mg PO TID 11/05/17 [History Last Taken Unknown] meloxicam 15 mg PO DAILY #15 tab 04/19/19 [Rx Last Taken Unknown] dulaglutide [Trulicity] 0.75 mg SQ QWEEK 04/08/20 [History Last Taken Unknown] insulin degludec 48 unit SQ QHS 04/08/20 [History Last Taken Unknown] lovastatin 20 mg PO QHS 04/08/20 [History Last Taken Unknown] epinephrine 0.3 mg IM .once PRN #2 ea 04/16/21 [Rx Last Taken Unknown] phenazopyridine [Pyridium] 200 mg PO TID 2 Days #6 tab 05/09/21 [Rx Last Taken Unknown] tizanidine [Zanaflex] 4 mg PO QHS PRN #14 tab 08/08/21 [Rx Last Taken Unknown] Allergy/AdvReac Type Severity Reaction Status Date / Time iron AdvReac Nausea Verified 07/29/21 19:52 oxycodone HCl [From Percocet] AdvReac Nausea Verified 07/29/21 19:52 sertraline HCl [From Zoloft] AdvReac Nausea Verified 07/29/21 19:52 BEES Allergy Anaphylaxis Uncoded 07/29/21 19:52 PAPER TAPE Allergy Rash Uncoded 07/29/21 19:52 Surgical History History of delivery History of partial hysterectomy Social History household members: none Smoking Status: Former smoker alcohol intake: current alcohol intake frequency: other substance use type: does not use ROS ROS ED Constitutional Constitutional ED: Denies chills, fever(s) or subjective Eyes Eyes: Denies blurry vision or diplopia ENT ENT ED: Denies rhinorrhea or sore throat Cardiovascular Cardiovascular: Denies chest pain or palpitations Respiratory/Chest Respiratory/Chest: Denies cough or dyspnea Gastrointestinal Gastrointestinal: Denies abdominal pain, nausea or vomiting Genitourinary Genitourinary ED: Denies dysuria or hematuria Musculoskeletal Musculoskeletal: Reports other Details: Left shoulder pain Integumentary Denies Abrasions or rash Neurologic Neurologic: Denies headache(s), paresthesias or weakness EXAM Physical Exam Const Vital Signs: 08/08/21 10:50 Temperature 97.5 F L Temperature Source Temporal Pulse Rate 104 H Respiratory Rate 18 Blood Pressure 130/97 H Blood Pressure Mean 108 Pulse Ox 97 Oxygen Delivery Method Room Air Positive well nourished General Appearance ED: NAD HEENT normocephalic and atraumatic Eyes PERRL and EOMs intact bilaterally Neck full ROM General: Negative for tenderness Chest Wall inspection of chest normal and palpation of chest normal Resp normal respiratory effort and clear to auscultation bilaterally Cardio regular rate and regular rhythm Back/Spine Cervical Spine: Negative for cervical spine tenderness Thoracic Spine / Upper Back: Negative for thoracic spinal tenderness Extremity normal to inspection and full ROM Extremity Narrative: Patient has no reproducible pain on examination. There is no rash, ecchymosis. The patient is actually moving her left arm vigorously while I am examining her as she is speaking. She is also moving her head and neck without difficulty. I did not find any tenderness in the cervical spine or the paraspinal musculature that was reproducible. Left upper extremity neurovascular intact throughout. Neuro oriented x3, CN's II-XII intact bilaterally, moves all extremities, no focal motor deficits and no sensory deficits noted Sensorium / Orientation: alert Psych mental status grossly normal Skin Lesions: no lesions Rashes: no rashes MDM MDM MDM Narrative Medical decision making narrative: Patient presenting with shoulder pain which I cannot reproduce on examination. She is moving her head and neck without difficulty. There is no external signs of injury. Patient does report that she is in pain management and not on any narcotics. She also reports that she was given muscle relaxers by a friend which temporarily helped her pain. I will obtain an x-ray of the cervical spine and the left shoulder. Patient will given a dose of morphine IM while she is awaiting results. As far as her stuttering goes it seems to be intermittent. She speaks clearly most of the time and then when she is trying to describe her pain stutters mildly. I do not believe there is any correlation with her stuttering to the shoulder pain and I do believe she is speaking quickly and this is likely the source. I do not believe her stuttering needs a work-up. X-rays of the left shoulder on my interpretation showed no acute fracture or subluxation. X-rays of the cervical spine show no acute pathology either on my interpretation. The radiologist does note that there is straightening of the normal lordosis. This is likely due to muscle spasm which is what I believed was happening initially. After I discussed the plan with her to get muscle relaxers for home and follow-up with pain management she told the nurse that she is insisting on having a CAT scan of her brain because she is concerned for her stuttering. I do not believe she needs this but if she is this adamant I did obtain a CT of the brain. The radiologist interpreted this as negative for acute findings. Patient was discharged home with the previous plan. Impression: 1. Left shoulder pain Discharge Plan Triage Chief Complaint: Upper Extremity Injury ED Provider: Gumaro Yap Dx/Rx/DC Orders Instructions: ED Neck Sprain or Strain Prescriptions: New tizanidine [Zanaflex] 4 mg tablet 4 mg PO QHS PRN (Reason: muscle spasticity) Qty: 14 RF: 0 No Action glimepiride 4 MG tablet 4 mg PO BID RF: 0 venlafaxine 37.5 MG tablet extended release 24hr 75 mg PO DAILY RF: 0 gabapentin [Neurontin] 100 MG capsule 100 mg PO TID RF: 0 cholecalciferol (vitamin D3) [Vitamin D3] 1,000 UNIT tablet 2,000 unit PO DAILY RF: 0 meloxicam 15 MG tablet 15 mg PO DAILY Qty: 15 RF: 0 lovastatin 20 MG tablet 20 mg PO QHS RF: 0 Trulicity 0.75 MG/0.5 ML pen injector 0.75 mg SQ QWEEK RF: 0 insulin degludec 100 UNIT/ML solution 48 unit SQ QHS RF: 0 epinephrine 0.3 mg/0.3 mL auto-injector 0.3 mg IM .once PRN (Reason: anaphylaxis) Qty: 2 RF: 0 phenazopyridine [Pyridium] 200 MG tablet 200 mg PO TID 2 Days Qty: 6 RF: 0 Primary Care Provider: Lele Hillman Referrals: Lele Hillman DO [Primary Care Provider] - Disposition Disposition: Home, Self Care Discharge Date/Time: 08/08/21 14:13
[2021-08-08] MEDS: Orphenadrine 100 MG Tablet PO (12:06)
--- NOTE | 2021-08-08 13:33 | CT_ITS ---
STUDY: CT BRAIN WITHOUT CONTRAST REASON FOR EXAM: Female, 51 years old. Stuttering RADIATION DOSAGE (If Supplied By Facility): CTDIvol = ( 44.99 ) mGy, DLP = ( 745.49 ) mGycm TECHNIQUE: Transaxial CT imaging of the brain was performed without administration of intravenous contrast material. Individualized dose optimization techniques were used for this CT. COMPARISON: 07/12/2018 FINDINGS: Normal soft tissue structures. Normal calvarium. Normal size ventricles and extra-axial spaces for the patient''s age. Normal white matter tracts of the cerebral hemispheres. Normal basal ganglia and thalami. Normal brainstem. Normal cerebellum. There is no intracranial hemorrhage. There are no findings of an acute ischemic infarction. Normal visualized paranasal sinuses. CT/Brain/Head without Contrast IMPRESSION: Normal unenhanced CT scan of the brain. Electronically Signed: Esteban Zheng, at 13:56 EST Tel , Service support ,
[2021-08-08 14:13] VITALS: PULSE 89; RESP 16; O2SAT 97
== END 2021-08-08 14:13 | disposition home or self-care (01) ==
PROVIDERS: Emergency Provider Student in an Organized Health Care Education/Training Program; PCP Student in an Organized Health Care Education/Training Program; Visit Provider Student in an Organized Health Care Education/Training Program
DX: M25.512 Pain in left shoulder (principal); E11.9 Type 2 diabetes mellitus without complications; Z79.4 Long term (current) use of insulin; Z87.891 Personal history of nicotine dependence; F32.A Depression, unspecified; F41.9 Anxiety disorder, unspecified; Z86.718 Personal history of other venous thrombosis and embolism; Z79.899 Other long term (current) drug therapy; G89.29 Other chronic pain
CPT/HCPCS: 70450; 72040; 73030; 99282

== ENCOUNTER 2021-11-27 20:34 | Emergency (ER) | payer MEDICARE, SELFPAY ==
[2021-11-27 20:35] VITALS: BP 123/87; PULSE 105; RESP 16; TEMP 36.2; O2SAT 97; BMI 32.2
[2021-11-27] MEDS: Smz/Tmp Ds Tablet 1 TABLET PO (21:03)
--- NOTE | 2021-11-27 22:10 | EX.ED.DYSGE1 ---
HPI History of Present Illness Chief Complaint: Abscess Informant: patient Onset/Context/Timing Onset: Days (3) Context: Gradual Onset Timing: Continuous Quality: sore Location: R upper back Current Severity: Severe Maximum Severity: Severe Worsened by: palpation Relieved by: nothing Associated Symptoms Associated Symptoms: none Narrative Narrative: Tender swollen area spontaneous in onset 3 days ago right upper back, no fevers or systemic symptoms. She is a diabetic and states that her blood sugars have been well controlled even during this. She states she poked it with one of her insulin needles now it is draining pus so she presents for further evaluation. She has never had an abscess before. [facility] Medical History Anxiety Depression Diabetes DVT (deep venous thrombosis) Smoker Substance abuse Home Medications glimepiride 4 mg PO BID 01/09/17 [History Last Taken 01/09/17] venlafaxine 75 mg PO DAILY 07/02/17 [History Last Taken Unknown] cholecalciferol (vitamin D3) [Vitamin D] 2,000 unit PO DAILY 11/05/17 [History Last Taken Unknown] gabapentin [Neurontin] 100 mg PO TID 11/05/17 [History Last Taken Unknown] meloxicam 15 mg PO DAILY #15 tab 04/19/19 [Rx Last Taken Unknown] dulaglutide [Trulicity] 0.75 mg SQ QWEEK 04/08/20 [History Last Taken Unknown] insulin degludec 48 unit SQ QHS 04/08/20 [History Last Taken Unknown] lovastatin 20 mg PO QHS 04/08/20 [History Last Taken Unknown] epinephrine 0.3 mg IM .once PRN #2 ea 04/16/21 [Rx Last Taken Unknown] phenazopyridine [Pyridium] 200 mg PO TID 2 Days #6 tab 05/09/21 [Rx Last Taken Unknown] tizanidine [Zanaflex] 4 mg PO QHS PRN #14 tab 08/08/21 [Rx Last Taken Unknown] sulfamethoxazole-trimethoprim 1 tab PO BID #20 tablet 11/27/21 [Rx Last Taken Unknown] Allergy/AdvReac Type Severity Reaction Status Date / Time iron AdvReac Nausea Verified 11/27/21 20:35 oxycodone HCl [From Percocet] AdvReac Nausea Verified 11/27/21 20:35 sertraline HCl [From Zoloft] AdvReac Nausea Verified 11/27/21 20:35 BEES Allergy Anaphylaxis Uncoded 11/27/21 20:35 PAPER TAPE Allergy Rash Uncoded 11/27/21 20:35 Surgical History History of delivery History of partial hysterectomy Social History household members: none Smoking Status: Former smoker alcohol intake: current alcohol intake frequency: other substance use type: does not use ROS ROS ED Constitutional Constitutional ED: Denies chills or fever(s) Musculoskeletal Musculoskeletal: Reports back pain; Denies extremity pain Neurologic Neurologic: Denies headache(s), paresthesias or weakness EXAM Physical Exam Const Vital Signs: 11/27/21 20:35 Temperature 97.1 F L Temperature Source Temporal Pulse Rate 105 H Respiratory Rate 16 Blood Pressure 123/87 H Blood Pressure Mean 99 Pulse Ox 97 Oxygen Delivery Method Room Air Positive well nourished and well developed General Appearance ED: well developed and NAD Back/Spine Back/Spine Narrative: Tender abscess right upper back near shoulder. No spinal tenderness. Extremity normal to inspection and full ROM Neuro oriented x3, CN's II-XII intact bilaterally, no focal motor deficits, no sensory deficits noted and gait normal Skin Skin Narrative: 4 cm tender abscess pointing and draining purulent material from the center. Surrounding cellulitis. MDM MDM MDM Narrative Medical decision making narrative: His cutaneous abscess was drained, I did try to express pus out of it before incising it but it really needed to be opened up to perform adequate I&D. I discussed that with the patient she was comfortable with that plan and signed consent. She will be started on Bactrim for what is likely an MRSA abscess, discussed reasons to return and care at home, family members can help care for it. Procedures Other Procedures Procedure(s): Simple I&D abscess: After informed consent, sterile prep with chlorhexidine the right upper back cutaneous abscess, locally anesthetized with 3 cc plain 1% lidocaine, incised with a #10 blade, good amount of purulent material was expressed, was deloculated, irrigated, dressed with bacitracin cavity not big enough to pack. No complications tolerated well. Discharge Plan Triage Chief Complaint: Abscess ED Provider: Santo Hunter Dx/Rx/DC Orders Clinical Impression: Cutaneous abscess of back [any part, except buttock] Instructions: ED Abscess Incision And Drainage Prescriptions: New sulfamethoxazole-trimethoprim [sulfamethoxazole-trimethoprim] 1 TABLET tablet 1 tab PO BID Qty: 20 RF: 0 No Action glimepiride 4 MG tablet 4 mg PO BID RF: 0 venlafaxine 37.5 MG tablet extended release 24hr 75 mg PO DAILY RF: 0 gabapentin [Neurontin] 100 MG capsule 100 mg PO TID RF: 0 cholecalciferol (vitamin D3) [Vitamin D3] 1,000 UNIT tablet 2,000 unit PO DAILY RF: 0 meloxicam 15 MG tablet 15 mg PO DAILY Qty: 15 RF: 0 lovastatin 20 MG tablet 20 mg PO QHS RF: 0 Trulicity 0.75 MG/0.5 ML pen injector 0.75 mg SQ QWEEK RF: 0 insulin degludec 100 UNIT/ML solution 48 unit SQ QHS RF: 0 epinephrine 0.3 mg/0.3 mL auto-injector 0.3 mg IM .once PRN (Reason: anaphylaxis) Qty: 2 RF: 0 phenazopyridine [Pyridium] 200 MG tablet 200 mg PO TID 2 Days Qty: 6 RF: 0 tizanidine [Zanaflex] 4 mg tablet 4 mg PO QHS PRN (Reason: muscle spasticity) Qty: 14 RF: 0 Primary Care Provider: Lele Hillman Referrals: Lele Hillman DO [Primary Care Provider] - 3-5 Days if not improving Disposition Disposition: Home, Self Care
[2021-11-27] MEDS: Lidocaine 1% (20 ml mdv) 20 ML Vial 5 ML INFILT (22:15)
== END 2021-11-27 22:31 | disposition home or self-care (01) ==
PROVIDERS: Emergency Provider Emergency Medicine; PCP Student in an Organized Health Care Education/Training Program; Visit Provider Emergency Medicine
DX: L02.212 Cutaneous abscess of back [any part, except buttock and flank] (principal); Z87.891 Personal history of nicotine dependence; Z86.718 Personal history of other venous thrombosis and embolism
CPT/HCPCS: 10060; 99283

== ENCOUNTER 2022-01-14 22:48 | Emergency (ER) | payer MEDICARE, SELFPAY ==
[2022-01-14 22:50] VITALS: BP 128/86; PULSE 83; RESP 14; TEMP 36.6; O2SAT 100; BMI 31.9
--- NOTE | 2022-01-14 23:06 | EX.ED.GENINJ ---
HPI History of Present Illness Chief Complaint: Burn Narrative Narrative: Patient presents with her cousin because of sunburn that she sustained yesterday. She states she was out in the sun for approximately 6 hours. She was not wearing sunscreen. While she has first-degree sunburn to the exposed areas on her face and arms, on her legs, she has blistering. She complains of swelling and redness. Of note, past medical history does include diabetes. She has not placed aloe vera or any other lotions on her skin. She presents because of her painful, swollen, blistered legs. [facility] Medical History Anxiety Depression Diabetes DVT (deep venous thrombosis) Smoker Substance abuse Home Medications glimepiride 4 mg tablet 4 mg PO BID 01/09/17 [History Last Taken 01/09/17] venlafaxine 37.5 mg tablet,extended release 24 hr 75 mg PO DAILY 07/02/17 [History Last Taken Unknown] cholecalciferol (vitamin D3) 25 mcg (1,000 unit) tablet (Vitamin D3) 2,000 unit PO DAILY 11/05/17 [History Last Taken Unknown] gabapentin 100 mg capsule (Neurontin) 100 mg PO TID 11/05/17 [History Last Taken Unknown] meloxicam 15 mg tablet 15 mg PO DAILY #15 tabs 04/19/19 [Rx Last Taken Unknown] dulaglutide 0.75 mg/0.5 mL subcutaneous pen injector (Trulicity) 0.75 mg SQ QWEEK 04/08/20 [History Last Taken Unknown] insulin degludec 100 unit/mL subcutaneous solution 48 unit SQ QHS 04/08/20 [History Last Taken Unknown] lovastatin 20 mg tablet 20 mg PO QHS 04/08/20 [History Last Taken Unknown] epinephrine 0.3 mg/0.3 mL injection, auto-injector 0.3 mg (0.3 mL) IM .once PRN anaphylaxis #2 ea 04/16/21 [Rx Last Taken Unknown] phenazopyridine 200 mg tablet (Pyridium) 200 mg PO TID 2 days #6 tabs 05/09/21 [Rx Last Taken Unknown] tizanidine 4 mg tablet (Zanaflex) 4 mg PO QHS PRN muscle spasticity #14 tabs 08/08/21 [Rx Last Taken Unknown] sulfamethoxazole 800 mg-trimethoprim 160 mg tablet 1 tab PO BID #20 TABLETS 11/27/21 [Rx Last Taken Unknown] Allergy/AdvReac Type Severity Reaction Status Date / Time iron AdvReac Nausea Verified 01/14/22 22:50 oxycodone HCl [From Percocet] AdvReac Nausea Verified 01/14/22 22:50 sertraline HCl [From Zoloft] AdvReac Nausea Verified 01/14/22 22:50 BEES Allergy Anaphylaxis Uncoded 01/14/22 22:50 PAPER TAPE Allergy Rash Uncoded 01/14/22 22:50 Surgical History History of delivery History of partial hysterectomy Social History household members: none Smoking Status: Former smoker alcohol intake: current alcohol intake frequency: other substance use type: does not use ROS ROS ED ROS Narrative Constitutional: No fever, no chills. HEENT: No sore throat. No neck pain. No loss of vision. No rhinorrhea. Cardiovascular: No chest pain. No palpitations. No pedal edema. Respiratory: No cough, no shortness of breath. Abdominal: No abdominal pain. No nausea. No vomiting. Genitourinary: No dysuria. No hematuria. Musculoskeletal: No myalgias. No arthralgias. Neurologic: No headaches. No dizziness. No lightheadedness. Skin: No rash. Redness and sunburn on upper and lower extremities, face and neck. Complains of blistering on left lower extremity especially. Psychiatric: No depression. No anxiety. EXAM Physical Exam Narrative Exam Narrative: Afebrile. Vital signs noted. HEENT: Normocephalic. Atraumatic. PERRL, EOMI. Neck soft and supple. No point tenderness or step off. Cardiovascular: Regular rate and rhythm. No murmurs, rubs, or gallops appreciated. Respiratory: No tachypnea. Lungs clear to auscultation bilaterally. Gastrointestinal: Abdomen soft, nontender, with normoactive bowel sounds. No rebound or guarding. Neurological: Awake. Alert. Nonfocal, nonlateralizing. Skin: No rash. Positive first-degree sunburn on exposed areas of skin including face, neck, upper extremities, and lower extremities. Noted large blister on medial aspect of left tibial surface. Neurovascular intact distally with palpable dorsalis pedis pulses. Musculoskeletal: No pedal edema. Full range of motion extremities. Const Vital Signs: 01/14/22 22:50 Temperature 98 F Temperature Source Temporal Pulse Rate 83 Respiratory Rate 14 Blood Pressure 128/86 H Blood Pressure Mean 100 Pulse Ox 100 Oxygen Delivery Method Room Air MDM MDM MDM Narrative Medical decision making narrative: Although the patient is diabetic, I do feel she would benefit from a steroid injection. She has elected Kenalog over oral prednisone. She was told to watch her blood sugars and make sure that they do not increase significantly. I feel she can be discharged safely home with follow-up to her primary care physician. Return instructions to the emergency department were reviewed. Disposition is discharged home in stable condition. Discharge Plan Triage Chief Complaint: Burn ED Provider: Livan Hernandez Dx/Rx/DC Orders Clinical Impression: Sunburn, blistering, Sunburn, Diabetes mellitus Instructions: ED Sunburn Prescriptions: No Action glimepiride 4 MG tablet 4 mg PO BID Label Comments: venlafaxine 37.5 MG tablet extended release 24hr 75 mg PO DAILY gabapentin [Neurontin] 100 MG capsule 100 mg PO TID cholecalciferol (vitamin D3) [Vitamin D3] 1,000 UNIT tablet 2,000 unit PO DAILY meloxicam 15 MG tablet 15 mg PO DAILY Qty: 15 0RF lovastatin 20 MG tablet 20 mg PO QHS Trulicity 0.75 MG/0.5 ML pen injector 0.75 mg SQ QWEEK insulin degludec 100 UNIT/ML solution 48 unit SQ QHS epinephrine 0.3 mg/0.3 mL auto-injector 0.3 mg IM .once PRN (Reason: anaphylaxis) Qty: 2 0RF Rx Instructions: for 2 doses phenazopyridine [Pyridium] 200 MG tablet 200 mg PO TID 2 Days Qty: 6 0RF tizanidine [Zanaflex] 4 mg tablet 4 mg PO QHS PRN (Reason: muscle spasticity) Qty: 14 0RF sulfamethoxazole-trimethoprim [sulfamethoxazole-trimethoprim] 1 TABLET tablet 1 tab PO BID Qty: 20 0RF Stand Alone Forms: ED Work / School Excuse Primary Care Provider: Lele Hillman Referrals: Lele Hillman, DO [Primary Care Provider] - 3-5 Days if not improving Disposition Disposition: Home, Self Care
[2022-01-14] MEDS: Triamcinolone Acetonide 40 MG/ML Vial IM (23:15)
== END 2022-01-14 23:37 | disposition home or self-care (01) ==
LOC: ED 23:10
PROVIDERS: Emergency Provider Emergency Medicine; PCP Student in an Organized Health Care Education/Training Program; Visit Provider Emergency Medicine
DX: L55.0 Sunburn of first degree (principal); E11.9 Type 2 diabetes mellitus without complications; Z87.891 Personal history of nicotine dependence; Z86.718 Personal history of other venous thrombosis and embolism
CPT/HCPCS: 96372; 99282

== ENCOUNTER 2022-06-30 18:08 | Emergency (ER) | payer MEDICARE, SELFPAY ==
[2022-06-30 18:10] VITALS: BP 152/89; PULSE 124; RESP 16; TEMP 36.6; O2SAT 98; BMI 33.7
--- NOTE | 2022-06-30 18:42 | CT_ITS ---
EXAM: CT ABDOMEN AND PELVIS WITH INTRAVENOUS CONTRAST CLINICAL INDICATION: RLQ pain TECHNIQUE: Helically acquired images were obtained of the abdomen and pelvis with intravenous contrast. This CT exam was performed using one or more of the following dose reduction techniques: automated exposure control, adjustment of the mA and/or kV according to patient size, and/or use of iterative reconstruction technique. This report was created using [employer] report generation technology. CONTRAST: IV 100mL Isovue-300 COMPARISON: 07/18/2018 FINDINGS: LOWER THORAX: Unremarkable. Lung bases are clear. No cardiomegaly. No significant pericardial effusion. ABDOMEN: LIVER: Unremarkable. Homogeneous. No focal mass. GALLBLADDER AND BILE DUCTS: Unremarkable. No calcified gallstones. No gallbladder distention or wall edema. No intra- or extrahepatic biliary ductal dilation. PANCREAS: Unremarkable. No focal cystic or solid mass. SPLEEN: Unremarkable. Normal size without focal cystic or solid mass. ADRENALS: Unremarkable. No nodules. KIDNEYS AND URETERS: There is minimal enhancement seen in the right ureter and right renal pelvis which may represent an inflammatory or an infectious process. There is no obstruction or ureteral stone identified. Normal renal size and position. STOMACH AND BOWEL: Unremarkable. No stomach or bowel distention. No focal inflammatory change. PELVIS: APPENDIX: Appendix is within normal limits. BLADDER: Unremarkable. REPRODUCTIVE: Unremarkable as visualized. No mass. ABDOMEN and PELVIS: INTRAPERITONEAL SPACE: Unremarkable. No ascites or other fluid collection. No free air. BONES/JOINTS: Unremarkable. No suspicious lytic or blastic abnormality. SOFT TISSUES: Unremarkable. No discrete abdominal or pelvic wall hernia. VASCULATURE: Unremarkable. Abdominal aorta is non-dilated. LYMPH NODES: Unremarkable. No enlarged lymph nodes. CT/Abdomen/Pelvis W IV Cont ONLY IMPRESSION: Minimal enhancement of the right renal pelvis and ureter compared to the left which may be due to an inflammatory or infectious etiology. There is no ureteral obstruction. No other acute abnormalities are identified. Electronically Signed: Simón Alicea MD at 20:23 EST ,
--- NOTE | 2022-06-30 18:44 | ED.VIS.GI ---
HPI HPI - GI History of Present Illness Chief Complaint: Abd Pain Narrative Narrative: -year-old female past medical history of diabetes, hyperlipidemia, status post remote partial hysterectomy presents with right flank and right lower quadrant abdominal pain that began yesterday evening. She states that sharp and stabbing in nature. On the side goes around to the back. She is nauseated but has not vomited. She denies any dysuria or hematuria. No exacerbating or alleviating factors. She took 2 Tylenol without relief. She is concerned about appendicitis because her mother had different symptoms. She states she had diarrhea yesterday and today. She is concerned about her right flank/abdominal pain. [facility] Medical History Anxiety Depression Diabetes DVT (deep venous thrombosis) Smoker Substance abuse Home Medications glimepiride 4 mg tablet 4 mg PO BID 01/09/17 [History Last Taken 01/09/17] venlafaxine 37.5 mg tablet,extended release 24 hr 75 mg PO DAILY 07/02/17 [History Last Taken Unknown] cholecalciferol (vitamin D3) 25 mcg (1,000 unit) tablet (Vitamin D3) 2,000 unit PO DAILY 11/05/17 [History Last Taken Unknown] gabapentin 100 mg capsule (Neurontin) 100 mg PO TID 11/05/17 [History Last Taken Unknown] meloxicam 15 mg tablet 15 mg PO DAILY #15 tabs 04/19/19 [Rx Last Taken Unknown] dulaglutide 0.75 mg/0.5 mL subcutaneous pen injector (Trulicity) 0.75 mg SQ QWEEK 04/08/20 [History Last Taken Unknown] insulin degludec 100 unit/mL subcutaneous solution 48 unit SQ QHS 04/08/20 [History Last Taken Unknown] lovastatin 20 mg tablet 20 mg PO QHS 04/08/20 [History Last Taken Unknown] epinephrine 0.3 mg/0.3 mL injection, auto-injector 0.3 mg (0.3 mL) IM .once PRN anaphylaxis #2 ea 04/16/21 [Rx Last Taken Unknown] phenazopyridine 200 mg tablet (Pyridium) 200 mg PO TID 2 days #6 tabs 05/09/21 [Rx Last Taken Unknown] tizanidine 4 mg tablet (Zanaflex) 4 mg PO QHS PRN muscle spasticity #14 tabs 08/08/21 [Rx Last Taken Unknown] sulfamethoxazole 800 mg-trimethoprim 160 mg tablet 1 tab PO BID #20 TABLETS 11/27/21 [Rx Last Taken Unknown] sulfamethoxazole 800 mg-trimethoprim 160 mg tablet (Bactrim DS) 1 tab PO BID 10 days #20 tabs 06/30/22 [Rx Last Taken Unknown] Allergy/AdvReac Type Severity Reaction Status Date / Time bee venom protein (honey bee) Allergy Anaphylaxis Verified 06/30/22 18:09 adhesive tape AdvReac Rash Verified 06/30/22 18:09 iron AdvReac Nausea Verified 06/30/22 18:09 oxycodone HCl [From Percocet] AdvReac Nausea Verified 06/30/22 18:09 sertraline HCl [From Zoloft] AdvReac Nausea Verified 06/30/22 18:09 Surgical History History of delivery History of partial hysterectomy Social History household members: none Smoking Status: Former smoker alcohol intake: current alcohol intake frequency: other substance use type: does not use ROS ROS ED ROS Narrative Constitutional: No fever, no chills. HEENT: No sore throat. No neck pain. No loss of vision. No rhinorrhea. Cardiovascular: No chest pain. No palpitations. No pedal edema. Respiratory: No cough, no shortness of breath. Abdominal: Right flank to lower quadrant abdominal pain. Positive nausea. No vomiting. Positive diarrhea. Genitourinary: No dysuria. No hematuria. Musculoskeletal: No myalgias. No arthralgias. Neurologic: No headaches. No dizziness. No lightheadedness. Skin: No rash. No change in color. Psychiatric: No depression. No anxiety. EXAM Physical Exam Narrative Exam Narrative: Afebrile. Vital signs noted. HEENT: Normocephalic. Atraumatic. PERRL, EOMI. Neck soft and supple. No point tenderness or step off. Cardiovascular: Positive tachycardia. No murmurs, rubs, or gallops appreciated. Respiratory: No tachypnea. Lungs clear to auscultation bilaterally. Gastrointestinal: Abdomen soft, mild tenderness to palpation right flank towards right lower quadrant, with normoactive bowel sounds. No rebound or guarding. Negative Carmen sign. No pain over McBurney's point. Neurological: Awake. Alert. Nonfocal, nonlateralizing. Skin: No rash. Normal color. No pallor. Musculoskeletal: No pedal edema. Full range of motion extremities. Const Vital Signs: 06/30/22 18:10 Temperature 97.8 F Temperature Source Temporal Pulse Rate 124 H Respiratory Rate 16 Blood Pressure 152/89 H Blood Pressure Mean 110 Pulse Ox 98 Oxygen Delivery Method Room Air MDM MDM MDM Narrative Medical decision making narrative: Comprehensive work-up was pursued. She was bolused normal saline 1 L intravenously. She was administered morphine and ondansetron for analgesia. CBC, CMP, and urinalysis were obtained along with CT of the abdomen pelvis with IV contrast. In the differential diagnosis is ureterolithiasis versus appendicitis versus diverticulitis/colitis. CBC shows slightly elevated white count of 11.1, normal hemoglobin of 14.4, hematocrit 43.5. Normal platelet count of 282. Electrolyte panel shows glucose elevated 221 with a normal anion gap of 7. BUN is normal at 9 with creatinine 0.78. Lipase is also normal at 95. Urinalysis shows leukocytes and nitrites. There are 10-[address] of the abdomen and pelvis does show right renal pelvis enhancement along with some ureteral enhancement. Given that she is having right flank pain she may have pyelonephritis. Her urine was sent for culture. She was given her first dose of Bactrim DS here in the emergency department and a prescription written to take twice a day for the next 10 days. She will follow-up with her primary care physician and continue [id number] analgesics. I feel she be discharged safely home with follow-up. Return instructions were reviewed. She is to return with high fever, increased pain, inability to take her medications, new or worsening symptoms. Disposition is discharged home in stable condition. Lab Data Attestation: I reviewed the patient's lab results. Labs: Laboratory Results - last 24 hr 06/30/22 06/30/22 06/30/22 18:50 18:50 18:58 WBC 11.1 H RBC 4.78 Hgb 14.4 Hct 43.5 MCV 91.0 MCH 30.1 MCHC 33.1 RDW Std Deviation 41.6 RDW Coeff of [place] 12.6 Plt Count 282 MPV 9.1 Immature Gran % (Auto) 0.400 Neut % (Auto) 68.8 Lymph % (Auto) 23.2 [place] % (Auto) 5.5 Eos % (Auto) 1.7 Baso % (Auto) 0.4 Absolute Neuts (auto) 7.7 Absolute Lymphs (auto) 2.58 Nucleated RBC % 0 Sodium 136 Potassium 3.8 Chloride 101 Carbon Dioxide 28.0 Anion Gap 7 BUN 9 Creatinine 0.78 Estim Creat Clear Calc 74.51 Est GFR (MDRD) Af Amer 101 Est GFR (MDRD) Non-Af 83 BUN/Creatinine Ratio 11.6 Glucose 221 H Calcium 9.3 Total Bilirubin 0.50 AST 7 L ALT 19 Alkaline Phosphatase 118 H Total Protein 7.9 Albumin 3.8 Globulin 4.1 Albumin/Globulin Ratio 0.9 Lipase 95 Urine Color Urine Clarity Urine pH Ur Specific [place] Urine Protein Urine Glucose (UA) Urine Ketones Urine Occult Blood Urine Nitrite Urine Bilirubin Urine Urobilinogen Ur Leukocyte Esterase Urine RBC Urine WBC Ur Squamous Epith Cells Urine Bacteria Urine Mucus POC Glucose 195 H 06/30/22 19:30 WBC RBC Hgb Hct MCV MCH MCHC RDW Std Deviation RDW Coeff of [place] Plt Count MPV Immature Gran % (Auto) Neut % (Auto) Lymph % (Auto) [place] % (Auto) Eos % (Auto) Baso % (Auto) Absolute Neuts (auto) Absolute Lymphs (auto) Nucleated RBC % Sodium Potassium Chloride Carbon Dioxide Anion Gap BUN Creatinine Estim Creat Clear Calc Est GFR (MDRD) Af Amer Est GFR (MDRD) Non-Af BUN/Creatinine Ratio Glucose Calcium Total Bilirubin AST ALT Alkaline Phosphatase Total Protein Albumin Globulin Albumin/Globulin Ratio Lipase Urine Color Yellow Urine Clarity Clear Urine pH 5.0 Ur Specific [place] 1.015 Urine Protein 30 H Urine Glucose (UA) 250 H Urine Ketones Negative Urine Occult Blood 250 H Urine Nitrite Positive H Urine Bilirubin Negative Urine Urobilinogen Normal Ur Leukocyte Esterase 100 H Urine RBC 5-10 SEEN Urine WBC 10-25 SEEN Ur Squamous Epith Cells 0 SEEN Urine Bacteria 3+ Urine Mucus 0 SEEN POC Glucose Radiography Diagnostic Testing: Clinical Impression(s) from Imaging Studies Abdomen/Pelvis CT 06/30/22 18:42 IMPRESSION: Minimal enhancement of the right renal pelvis and ureter compared to the left which may be due to an inflammatory or infectious etiology. There is no ureteral obstruction. No other acute abnormalities are identified. Electronically Signed: Simón Alicea MD at 20:23 EST , Discharge Plan Triage Chief Complaint: Abd Pain ED Provider: Livan Hernandez Dx/Rx/DC Orders Clinical Impression: Pyelonephritis, Right flank pain Instructions: ED Pyelonephritis, Female (Adult) Prescriptions: New sulfamethoxazole-trimethoprim [Bactrim DS] 800-160 mg tablet 1 tab PO BID 10 Days Qty: 20 0RF No Action glimepiride 4 MG tablet 4 mg PO BID Label Comments: venlafaxine 37.5 MG tablet extended release 24hr 75 mg PO DAILY gabapentin [Neurontin] 100 MG capsule 100 mg PO TID cholecalciferol (vitamin D3) [Vitamin D3] 1,000 UNIT tablet 2,000 unit PO DAILY meloxicam 15 MG tablet 15 mg PO DAILY Qty: 15 0RF lovastatin 20 MG tablet 20 mg PO QHS Trulicity 0.75 MG/0.5 ML pen injector 0.75 mg SQ QWEEK insulin degludec 100 UNIT/ML solution 48 unit SQ QHS epinephrine 0.3 mg/0.3 mL auto-injector 0.3 mg IM .once PRN (Reason: anaphylaxis) Qty: 2 0RF Rx Instructions: for 2 doses phenazopyridine [Pyridium] 200 MG tablet 200 mg PO TID 2 Days Qty: 6 0RF tizanidine [Zanaflex] 4 mg tablet 4 mg PO QHS PRN (Reason: muscle spasticity) Qty: 14 0RF sulfamethoxazole-trimethoprim [sulfamethoxazole-trimethoprim] 1 TABLET tablet 1 tab PO BID Qty: 20 0RF Primary Care Provider: Lele Hillman Referrals: Lele Hillman DO [Primary Care Provider] - 3-5 Days Disposition Disposition: Home, Self Care
[2022-06-30] MEDS: 0.9% Normal Saline 1,000 ML 1000 ML IV (18:52)
[2022-06-30] MEDS: Ondansetron 4 MG/2 ML Vial IV (18:53)
[2022-06-30] MEDS: Morphine 4 MG/ML Syringe IV (18:53)
[2022-06-30 19:02] LABS: Absolute Lymphocyte Count 2.58 X10^3/uL (0.83-4.51); Absolute Neutrophil Count 7.7 X10^3/uL (2.0-7.7); Basophil# 0.04 X10^3/uL; Basophil% 0.4 % (0-1); Eosinophil# 0.19 X10^3/uL; Eosinophils% 1.7 % (0-5); Hematocrit 43.5 % (37-47); Hemoglobin 14.4 g/dL (12.0-15.0); Lymphocyte # 2.58 X10^3/ul (0.83-4.51); Lymphocyte % 23.2 % (19-41); Mean Corp Hgb Conc 33.1 g/dL (32-36); Mean Corpuscular Hgb 30.1 pg (27.0-32.0); Mean Platelet Vol. 9.1 fl (6.2-12.0); Monocyte# 0.61 X10^3/uL; Monocyte% 5.5 % (0-10); NRBC Flagged by Analyzer 0 % (0-5); Neutrophil # 7.66 X10^3/uL (2.7-7.7); Neutrophil % 68.8 % (47-70); Platelet Count 282 K/mm3 (150-450); RBC Distribution Width CV 12.6 % (11.6-14.6); RBC Distribution Width SD 41.6 fl (35.1-43.9); Red Blood Count 4.78 M/mm3 (4.2-5.4); White Blood Count 11.1 K/mm3 (4.4-11.0)
[2022-06-30 19:18] LABS: ALB/GLOB Ratio 0.9 RATIO (0.9-2.4); AST(SGOT) 7 U/L (15-37); Alanine Aminotransfer ALT/SGPT 19 U/L (13-56); Albumin, Serum 3.8 g/dL (3.2-5.0); Alkaline Phosphatase 118 U/L (45-117); Anion Gap 7 (5-15); BUN 9 mg/dL (7-18); BUN/Creat Ratio 11.6 RATIO (10-20); Calcium,Total 9.3 mg/dL (8.5-10.1); Chloride 101 mmol/L (98-107); Creatinine, Serum 0.78 mg/dL (0.55-1.02); EST Glomerular Filtration Rate 83 mL/min (>60); Est Glom Filt Rate - Afr Amer 101 mL/min (>60); Estimated Creatinine Clearance 74.51 ml/min; Globulin 4.1 g/dL (2.2-4.2); Glucose 221 mg/dL (74-106); Lipase 95 U/L (73-393); Potassium 3.8 mmol/L (3.5-5.1); Protein, Total 7.9 g/dL (6.4-8.2); Sodium Level 136 mmol/L (136-145)
[2022-06-30 19:20] LABS: Bedside Glucose 195 mg/dL (74-106)
[2022-06-30 19:33] LABS: Mucous, Urine 0 SEEN /hpf (<or=2+); Squamous Epithelial Cells - UA 0 SEEN /hpf (5-10)
[2022-06-30 19:34] LABS: Color, Urine Yellow (Yellow); Glucose, Dipstick 250 mg/dl (Normal); Ketone-Dipstick Negative (Negative); Leukocyte Esterase-Dipstick 100 /ul (Negative); Nitrite-Dipstick Positive (Negative); Occult Blood-Urine 250 /ul (Negative); Protein-Dipstick 30 mg/dl (Negative); Specific Gravity, Urine 1.015 (1.002-1.030); Urine Bilirubin Dipstick Negative (Negative); Urine Clarity Clear (Clear); Urine Urobilinogen Normal (Normal)
[2022-06-30 19:42] LABS: Bacteria 3+ /hpf (None Seen); White Blood Cells 10-25 SEEN /hpf (0-5)
[2022-06-30 19:43] LABS: Red Blood Cells-Urine 5-10 SEEN /hpf (0-5)
[2022-06-30] MEDS: Smz/Tmp Ds Tablet 1 TABLET PO (21:19)
[2022-06-30 21:24] VITALS: BP 110/78; PULSE 78; RESP 16; TEMP 36.6; O2SAT 100
[2022-07-01 08:21] LABS: Bedside Glucose 185 mg/dL (74-106)
== END 2022-06-30 21:28 | disposition home or self-care (01) ==
PROVIDERS: Emergency Provider Emergency Medicine; PCP Student in an Organized Health Care Education/Training Program; Visit Provider Emergency Medicine
DX: N12 Tubulo-interstitial nephritis, not specified as acute or chronic (principal); E11.65 Type 2 diabetes mellitus with hyperglycemia; R10.31 Right lower quadrant pain; E78.5 Hyperlipidemia, unspecified; R11.0 Nausea; Z90.711 Acquired absence of uterus with remaining cervical stump; Z87.891 Personal history of nicotine dependence
CPT/HCPCS: 74177; 80053; 81001; 82962; 83690; 85025; 87077; 87086; 87088; 87186; 96361; 96374; 96375; 99283; J7030; Q9967; A4216; J2405

== ENCOUNTER 2022-12-10 17:25 | Emergency (ER) | payer MEDICARE, SELFPAY ==
[2022-12-10 17:27] VITALS: BP 129/90; PULSE 117; RESP 16; TEMP 36.8; O2SAT 97; BMI 34.5
--- NOTE | 2022-12-10 17:38 | EDS_ITS ---
HPI <BETH Dockery - Last Filed: 12/10/22 18:04> History of Present Illness Chief Complaint: Upper Extremity Injury Narrative Narrative: Patient is a 52-year-old female with history of fibromyalgia, diabetes, hyperlipidemia. Patient does see pain management for this fibromyalgia which is usually in her back and neck. Patient states he is on gabapentin however today when she woke up, she has had worsening pain to the left side of her neck that rates down her left arm. She denies any injury. She states that the arm is worse when she lifts it above her head. She has no difficulty moving her neck. No history of IV drug abuse, no evidence of any fever or chills. PFS <BETH Dockery - Last Filed: 12/10/22 18:04> [facility] Medical History Anxiety Depression Diabetes DVT (deep venous thrombosis) Smoker Substance abuse Home Medications glimepiride 4 mg tablet 4 mg PO BID 01/09/17 [History Last Taken 01/09/17] venlafaxine 37.5 mg tablet,extended release 24 hr 75 mg PO DAILY 07/02/17 [History Last Taken Unknown] cholecalciferol (vitamin D3) 25 mcg (1,000 unit) tablet (Vitamin D3) 2,000 unit PO DAILY 11/05/17 [History Last Taken Unknown] gabapentin 100 mg capsule (Neurontin) 100 mg PO TID 11/05/17 [History Last Taken Unknown] meloxicam 15 mg tablet 15 mg PO DAILY #15 tabs 04/19/19 [Rx Last Taken Unknown] dulaglutide 0.75 mg/0.5 mL subcutaneous pen injector (Trulicity) 0.75 mg SQ QWEEK 04/08/20 [History Last Taken Unknown] insulin degludec 100 unit/mL subcutaneous solution 48 unit SQ QHS 04/08/20 [History Last Taken Unknown] lovastatin 20 mg tablet 20 mg PO QHS 04/08/20 [History Last Taken Unknown] epinephrine 0.3 mg/0.3 mL injection, auto-injector 0.3 mg (0.3 mL) IM .once PRN anaphylaxis #2 ea 04/16/21 [Rx Last Taken Unknown] phenazopyridine 200 mg tablet (Pyridium) 200 mg PO TID 2 days #6 tabs 05/09/21 [Rx Last Taken Unknown] tizanidine 4 mg tablet (Zanaflex) 4 mg PO QHS PRN muscle spasticity #14 tabs 08/08/21 [Rx Last Taken Unknown] sulfamethoxazole 800 mg-trimethoprim 160 mg tablet 1 tab PO BID #20 TABLETS 11/27/21 [Rx Last Taken Unknown] sulfamethoxazole 800 mg-trimethoprim 160 mg tablet (Bactrim DS) 1 tab PO BID 10 days #20 tabs 06/30/22 [Rx Last Taken Unknown] Allergy/AdvReac Type Severity Reaction Status Date / Time bee venom protein (honey bee) Allergy Anaphylaxis Verified 12/10/22 17:32 adhesive tape AdvReac Rash Verified 12/10/22 17:32 iron AdvReac Nausea Verified 12/10/22 17:32 oxycodone HCl [From Percocet] AdvReac Nausea Verified 12/10/22 17:32 sertraline HCl [From Zoloft] AdvReac Nausea Verified 12/10/22 17:32 Surgical History History of delivery History of partial hysterectomy Social History household members: none Smoking Status: Former smoker alcohol intake: current alcohol intake frequency: other substance use type: does not use ROS <BETH Dockery - Last Filed: 12/10/22 18:04> ROS ED ROS Narrative Constitutional: Negative for fever, chills, weight loss, weakness Eyes: Negative for vision loss, vision change, double vision ENT: Negative for any sore throat, ear pain, congestion Cardiovascular: Negative for any chest pain, tightness, palpitations Respiratory: Negative for any cough, sputum production, hemoptysis, dyspnea, dyspnea on exertion, orthopnea Gastrointestinal: Negative for any abdominal pain, nausea, vomiting, diarrhea, constipation, blood in stool, blood in vomit : Negative for any urinary frequency, dysuria, retention, blood in urine Muscle skeletal: Negative for any muscle joint pain, stiffness, myalgias, arthralgias. Positive for left-sided neck pain that raise the left arm, left mid to upper back pain Neurological: Negative for any headache, syncope, numbness or tingling, dizziness Skin: Negative for any rashes, lumps, itching, abrasions, lacerations Psychiatric: Negative for any depression, anxiety, stress, suicidal ideation, homicidal ideation Hematologic: Negative for any easy bruising, excessive bruising, easy bleeding Allergies: Negative for any eczema, hives, rash EXAM <BETH Dockery - Last Filed: 12/10/22 18:04> Physical Exam Narrative Exam Narrative: Vital signs reviewed. HEET: Head normocephalic atraumatic, TMs clear bilaterally. Posterior pharynx is clear, moist mucous membranes. Nares clear bilaterally. Neck: Supple with no lymphadenopathy or tenderness. No signs of meningismus, negative jolt sign. Patient has pain to the left trapezius that radiates to the left shoulder. Patient also has pain on palpation to the left scapular area. Cardiac: Regular rate and rhythm no murmurs gallops or rubs, equal peripheral pulses bilaterally. Respiratory: Lungs clear to auscultation bilaterally. No chest tenderness. Abdomen: Soft, nontender, nondistended. No abdominal bruit or pulsatile masses. No hepatosplenomegaly Extremities: No peripheral edema, no signs of gross trauma or deformity. Active full range of motion of all extremities. Patient is able to abduct her arm to 90 degrees however more than that causes pain to her left shoulder, left neck. She has no difficulty moving her left side to side up or down. +2 radial pulse. Equal handgrips. Neuro: Cranial nerves II through XII intact, no focal neurological deficits. Skin: Clean dry and intact with no rash, purpura, petechiae, vesicles or pustules. Backs/flank: No CVA tenderness, no midline spinal tenderness, no deformity. Psych: Normal mood and affect. No SI, HI or acute psychosis. Const Vital Signs: 12/10/22 17:27 Temperature 98.2 F Temperature Source Temporal Pulse Rate 117 H Respiratory Rate 16 Blood Pressure 129/90 H Blood Pressure Mean 103 Pulse Ox 97 Oxygen Delivery Method Room Air [facility] <BETH Dockery - Last Filed: 12/10/22 18:04> [facility] Treatment and Re-Evaluation Narrative: Patient appears generally well, patient appears nontoxic, vital signs are stable. Patient presents to the emergency department with complaints of increased in her fibromyalgia pain worse the left side of her neck, left arm. Patient's physical examination yielded no red flag signs, no meningeal signs, no evidence of any spinal abscess. Patient will receive IM Toradol, Norflex. By mouth [place]. She will be reassessed. Patient is in pain management and cannot receive any narcotic pain medicine prescriptions. On reassessment, the patient was feeling much better, she had more range of motion. Patient is happy with the plan of care, she will be given a prescription for Flexeril. She is instructed to follow-up outpatient with her pain management. Patient be diagnosed with fibromyalgia, cervical radiculopathy. She is happy with the plan of care, all questions answered. <Dr. Jose Angel Trivedi, DO - Last Filed: 12/10/22 22:22> [facility] Narrative Medical decision making narrative: Attending note: Patient seen and evaluated with dross skimmer. I perform my own [id number] evaluation. I agree with the plan of work-up. Increasing pain neck rating down left arm history of similar with fibromyalgia. Denies trauma. Patient examined after medications given, symptoms are improving she is moving her arm up in bed feels ready to be discharged. Pulses are intact distal extremities. Patient discharged with outpatient follow-up. Discharge Plan Triage Chief Complaint: Upper Extremity Injury ED Midlevel Provider: Ruperto Chinchilla ED Provider: Jose Angel Trivedi Dx/Rx/DC Orders Clinical Impression: Fibromyalgia, Cervical radiculopathy Instructions: ED Fibromyalgia Prescriptions: No Action glimepiride 4 MG tablet 4 mg PO BID Label Comments: venlafaxine 37.5 MG tablet extended release 24hr 75 mg PO DAILY gabapentin [Neurontin] 100 MG capsule 100 mg PO TID cholecalciferol (vitamin D3) [Vitamin D3] 1,000 UNIT tablet 2,000 unit PO DAILY meloxicam 15 MG tablet 15 mg PO DAILY Qty: 15 0RF lovastatin 20 MG tablet 20 mg PO QHS Trulicity 0.75 MG/0.5 ML pen injector 0.75 mg SQ QWEEK insulin degludec 100 UNIT/ML solution 48 unit SQ QHS epinephrine 0.3 mg/0.3 mL auto-injector 0.3 mg IM .once PRN (Reason: anaphylaxis) Qty: 2 0RF Rx Instructions: for 2 doses phenazopyridine [Pyridium] 200 MG tablet 200 mg PO TID 2 Days Qty: 6 0RF tizanidine [Zanaflex] 4 mg tablet 4 mg PO QHS PRN (Reason: muscle spasticity) Qty: 14 0RF sulfamethoxazole-trimethoprim [sulfamethoxazole-trimethoprim] 1 TABLET tablet 1 tab PO BID Qty: 20 0RF sulfamethoxazole-trimethoprim [Bactrim DS] 800-160 mg tablet 1 tab PO BID 10 Days Qty: 20 0RF Primary Care Provider: Lele Hillman Referrals: Lele Hillman DO [Primary Care Provider] - Activity Restrictions/Additional Instructions: Please follow-up with your pain management. Please perform gentle stretching, ice and heat. Use your medications at home. Disposition Disposition: Home, Self Care Discharge Date/Time: 12/10/22 18:12
[2022-12-10] MEDS: Ketorolac 30 MG/ML Syringe IM (17:45)
[2022-12-10] MEDS: Orphenadrine 60 MG/2 ML Ampul IM (17:45)
[2022-12-10] MEDS: HYDROcodone Bitartrate/Apap 5/325 Tablet PO (17:46)
[2022-12-10 18:13] VITALS: BP 132/74; PULSE 62; RESP 15; O2SAT 98
== END 2022-12-10 18:12 | disposition home or self-care (01) ==
PROVIDERS: Emergency Provider Emergency Medicine; PCP Student in an Organized Health Care Education/Training Program; Visit Provider Emergency Medicine
DX: M79.7 Fibromyalgia (principal); E11.9 Type 2 diabetes mellitus without complications; M54.12 Radiculopathy, cervical region; Z87.891 Personal history of nicotine dependence; E78.5 Hyperlipidemia, unspecified; Z86.718 Personal history of other venous thrombosis and embolism; Z79.899 Other long term (current) drug therapy; F41.9 Anxiety disorder, unspecified; F32.A Depression, unspecified; Z79.85 Long-term (current) use of injectable non-insulin antidiabetic drugs; Z90.710 Acquired absence of both cervix and uterus
CPT/HCPCS: 96372; 99285

== ENCOUNTER 2023-05-15 08:47 | Emergency (ER) | payer MEDICARE, SELFPAY ==
[2023-05-15 08:49] VITALS: BP 141/83; PULSE 130; RESP 18; TEMP 36.8; O2SAT 99
[2023-05-15 09:21] VITALS: TEMP 37.9
[2023-05-15 09:25] VITALS: TEMP 37.9
--- NOTE | 2023-05-15 09:28 | EX.ED.DYSGE1 ---
HPI History of Present Illness Chief Complaint: Sore Throat Informant: patient Narrative Narrative: Patient is a 53-year-old female with history of diabetes mellitus, hyperlipidemia, prior strep throat (last time was 1 year ago) and prior DVT no longer on anticoagulation presenting with sore throat and fever. Patient states he started feeling a sore throat last night, right slightly worse than left. She also had a subjective fever and took some Aleve with relief. She woke up this morning and her symptoms did worsen. States she had a hard time swallowing a coin keep down liquids. She states her blood sugar was 92 so she tried eat some hernandez pie this morning but she then had to throw it up because she felt like it got stuck in the back of her throat. She states it is more from her throat feeling swollen around her tonsils. Denies any other nausea or vomiting. Feels like she is getting a fever again. Has not had any medication today for fever. Notes that her blood sugars sometimes go up to the 200s but she is not sure her last A1c is or how well controlled her diabetes is. Denies any other GI, or systemic symptoms. Denies any sick contacts. No other complaints at this time. [facility] Medical History Anxiety Depression Diabetes DVT (deep venous thrombosis) Smoker Substance abuse Home Medications glimepiride 4 mg tablet 4 mg PO BID 01/09/17 [History Last Taken 01/09/17] venlafaxine 37.5 mg tablet,extended release 24 hr 75 mg PO DAILY 07/02/17 [History Last Taken Unknown] cholecalciferol (vitamin D3) 25 mcg (1,000 unit) tablet (Vitamin D3) 2,000 unit PO DAILY 11/05/17 [History Last Taken Unknown] gabapentin 100 mg capsule (Neurontin) 100 mg PO TID 11/05/17 [History Last Taken Unknown] meloxicam 15 mg tablet 15 mg PO DAILY #15 tabs 04/19/19 [Rx Last Taken Unknown] dulaglutide 0.75 mg/0.5 mL subcutaneous pen injector (Trulicity) 0.75 mg SQ QWEEK 04/08/20 [History Last Taken Unknown] insulin degludec 100 unit/mL subcutaneous solution 48 unit SQ QHS 04/08/20 [History Last Taken Unknown] lovastatin 20 mg tablet 20 mg PO QHS 04/08/20 [History Last Taken Unknown] epinephrine 0.3 mg/0.3 mL injection, auto-injector 0.3 mg (0.3 mL) IM .once PRN anaphylaxis #2 ea 04/16/21 [Rx Last Taken Unknown] tizanidine 4 mg tablet (Zanaflex) 4 mg PO QHS PRN muscle spasticity #14 tabs 08/08/21 [Rx Last Taken Unknown] amoxicillin 500 mg capsule 500 mg PO BID #20 caps 05/15/23 [Rx Last Taken Unknown] baclofen 10 mg tablet 10 mg PO Q12H 05/15/23 [History Last Taken Unknown] Allergy/AdvReac Type Severity Reaction Status Date / Time bee venom protein (honey bee) Allergy Anaphylaxis Verified 05/15/23 08:51 adhesive tape AdvReac Rash Verified 05/15/23 08:51 iron AdvReac Nausea Verified 05/15/23 08:51 oxycodone HCl [From Percocet] AdvReac Nausea Verified 05/15/23 08:51 sertraline HCl [From Zoloft] AdvReac Nausea Verified 05/15/23 08:51 Surgical History History of delivery History of partial hysterectomy Social History household members: none Smoking Status: Former smoker alcohol intake: current alcohol intake frequency: other substance use type: does not use ROS ROS ED Constitutional Constitutional ED: Reports chills, fever(s) and subjective Eyes Eyes: Denies change in vision ENT ENT ED: Reports sore throat; Denies ear pain or rhinorrhea Cardiovascular Cardiovascular: Denies chest pain or palpitations Respiratory/Chest Respiratory/Chest: Denies cough or dyspnea Gastrointestinal Gastrointestinal: Denies abdominal pain, diarrhea or nausea Musculoskeletal Musculoskeletal: Denies arthralgias or myalgias Integumentary Denies rash Neurologic Neurologic: Denies headache(s) EXAM Physical Exam Const Vital Signs: 05/15/23 08:49 05/15/23 09:25 05/15/23 09:21 Temperature 98.3 F 100.2 F H 100.2 F H Temperature Source Temporal Oral Oral Pulse Rate 130 H Respiratory Rate 18 Blood Pressure 141/83 H Blood Pressure Mean 102 Pulse Ox 99 Oxygen Delivery Method Room Air Positive well nourished and well developed General Appearance ED: well developed and NAD HEENT Reports TM's clear and moist mucous membranes HEENT Narrative: Normal naris. Oral pharyngeal exam?uvula is midline. Bilateral tonsillar erythema and edema present. Slight exudate forming on the right. Normal phonation. Tympanic Membrane ED: Yes TM's clear Neck no lymphadenopathy, supple and no JVD Neck Narrative: Mild tenderness palpation of the right submental region with no edema present. Normal range of motion of the neck Chest Wall inspection of chest normal and palpation of chest normal Resp normal respiratory effort and clear to auscultation bilaterally Cardio regular rhythm and no murmurs Rate: tachycardic GI normal to inspection, nondistended, normoactive bowel sounds and non-tender Extremity normal to inspection Neuro oriented x3 Sensorium / Orientation: alert Motor Exam: Negative for general weakness Psych mental status grossly normal Skin no rashes or lesions noted and no wounds MDM MDM MDM Narrative Medical decision making narrative: Patient is evaluated for sore throat and subjective fever that started yesterday. She appears nontoxic. Vital signs are significant for tachycardia with a heart rate of 130 and on repeat temperature she does have a low-grade temperature of 100.2. Suspect that tachycardia is corresponding to fever. Is given a dose of Advil. Strep swab is obtained. Differential includes bacterial pharyngitis as well as viral syndrome. Physical exam not consistent with peritonsillar abscess and I do not think she requires further imaging or blood work at this time. She otherwise is well-appearing. Strep swab is positive. Heart rate improves with ibuprofen however she still mildly tachycardic. She is overall well-appearing and believe she be discharged home and does not require further work-up. Physical exam and HPI highly consistent with uncomplicated strep pharyngitis. Patient is given first dose of amoxicillin in the ER. Discussed risk and benefits of steroids at this time and given her diabetes will defer Decadron and just use alternate ibuprofen and Tylenol for pain/symptom relief. Given return precautions. Discharged home in stable and improved condition. Discharge Plan Triage Chief Complaint: Sore Throat ED Provider: Demetria Ruffin Dx/Rx/DC Orders Clinical Impression: Acute streptococcal pharyngitis Instructions: ED Pharyngitis, Strep (Confirmed) Prescriptions: New amoxicillin 500 mg capsule 500 mg PO BID Qty: 20 0RF No Action glimepiride 4 MG tablet 4 mg PO BID Patient Comments: venlafaxine 37.5 MG tablet extended release 24hr 75 mg PO DAILY gabapentin [Neurontin] 100 MG capsule 100 mg PO TID cholecalciferol (vitamin D3) [Vitamin D3] 1,000 UNIT tablet 2,000 unit PO DAILY meloxicam 15 MG tablet 15 mg PO DAILY Qty: 15 0RF lovastatin 20 MG tablet 20 mg PO QHS Trulicity 0.75 MG/0.5 ML pen injector 0.75 mg SQ QWEEK insulin degludec 100 UNIT/ML solution 48 unit SQ QHS epinephrine 0.3 mg/0.3 mL auto-injector 0.3 mg IM .once PRN (Reason: anaphylaxis) Qty: 2 0RF Rx Instructions: for 2 doses tizanidine [Zanaflex] 4 mg tablet 4 mg PO QHS PRN (Reason: muscle spasticity) Qty: 14 0RF baclofen 10 mg tablet 10 mg PO Q12H Primary Care Provider: Lele Hillman Referrals: Lele Hillman DO [Primary Care Provider] - Activity Restrictions/Additional Instructions: Drink plenty of fluids. Alternate ibuprofen and Tylenol as needed for pain. If you have a hard time swallowing or worsening sensation of swelling in your throat please return to the emergency room. Disposition Disposition: Home, Self Care
[2023-05-15] MEDS: Ibuprofen 600 MG Tablet PO (09:36)
[2023-05-15 09:37] VITALS: BMI 37.3
[2023-05-15] MEDS: AMOXICILLIN 500 MG CAPSULE PO (11:12)
== END 2023-05-15 11:13 | disposition home or self-care (01) ==
PROVIDERS: Emergency Provider Emergency Medicine; PCP Student in an Organized Health Care Education/Training Program; Visit Provider Emergency Medicine
DX: J02.0 Streptococcal pharyngitis (principal); E11.9 Type 2 diabetes mellitus without complications; Z79.4 Long term (current) use of insulin; E78.5 Hyperlipidemia, unspecified; F41.9 Anxiety disorder, unspecified; F32.A Depression, unspecified; Z79.84 Long term (current) use of oral hypoglycemic drugs; Z79.899 Other long term (current) drug therapy; Z86.718 Personal history of other venous thrombosis and embolism; Z87.891 Personal history of nicotine dependence
CPT/HCPCS: 87880; 99283

== ENCOUNTER 2023-12-31 01:53 | Emergency (ER) | payer MEDICARE, SELFPAY ==
[2023-12-31 01:55] VITALS: BP 124/87; PULSE 127; RESP 18; TEMP 36.9; O2SAT 97; BMI 37.6
[2023-12-31] MEDS: Lidocaine 2% /Epi 1:100 (20ml) 20 ML VIAL INFILT (02:40)
[2023-12-31] MEDS: Clindamycin HCl 150 MG Capsule 300 MG PO (02:40)
[2023-12-31] MEDS: Ondansetron ODT 4 MG Tablet PO (02:40)
[2023-12-31] MEDS: Morphine 4 MG/ML Syringe 8 MG IM (02:40)
--- NOTE | 2023-12-31 03:44 | EX.ED.DYSGE1 ---
HPI History of Present Illness Chief Complaint: Abscess Informant: patient and spouse/S.O. Narrative Narrative: Patient is a 53-year-old female with past medical history of diabetes. She states over the last 5 days or so she has noticed swelling redness and pain in her left armpit and along her right upper lip. She denies any recent trauma. She denies any fevers chills or difficulty breathing or swallowing. She states that she is concerned she is developing infection and secondary to this comes in for evaluation. [facility] Medical History Anxiety Depression Diabetes DVT (deep venous thrombosis) Smoker Substance abuse Home Medications ?Medication ?Instructions ?Recorded ?Last Taken ?Type glimepiride 4 mg tablet 4 mg PO BID 01/09/17 01/09/17 History cholecalciferol (vitamin D3) 25 2,000 unit PO DAILY 11/05/17 Unknown History mcg (1,000 unit) tablet (Vitamin D3) gabapentin 100 mg capsule 100 mg PO TID 11/05/17 Unknown History (Neurontin) meloxicam 15 mg tablet 15 mg PO DAILY #15 tabs 04/19/19 Unknown Rx epinephrine 0.3 mg/0.3 mL 0.3 mg (0.3 mL) IM .once PRN 04/16/21 Unknown Rx injection, auto-injector anaphylaxis #2 ea tizanidine 4 mg tablet (Zanaflex) 4 mg PO QHS PRN muscle spasticity 08/08/21 Unknown Rx #14 tabs baclofen 10 mg tablet 10 mg PO Q12H 05/15/23 Unknown History aripiprazole 5 mg tablet 5 mg PO DAILY 12/31/23 Unknown History clindamycin HCl 300 mg capsule 300 mg PO 4X/DAY 10 days #40 12/31/23 Unknown Rx (Cleocin HCl) CAPSULES dulaglutide 4.5 mg/0.5 mL 4.5 mg subcut Q7D 12/31/23 Unknown History subcutaneous pen injector (Trulicity) hydrocodone-acetaminophen 5-325mg 1 tab PO Q6H PRN PRN Pain 3 days 12/31/23 Unknown Rx 5mg-325mg #12 TABLETS hydroxyzine HCl 25 mg tablet 25 mg PO TID 12/31/23 Unknown History insulin degludec 100 unit/mL (3 50 unit subcut QHS 12/31/23 Unknown History mL) subcutaneous pen (Tresiba FlexTouch U-100 insulin) lansoprazole 30 mg capsule,delayed 30 mg PO DAILY 12/31/23 Unknown History release lovastatin 40 mg tablet 40 mg PO DAILY 12/31/23 Unknown History omeprazole 20 mg capsule,delayed 20 mg PO DAILY 12/31/23 Unknown History release venlafaxine 150 mg 150 mg PO DAILY 12/31/23 Unknown History capsule,extended release 24 hr Allergy/AdvReac Type Severity Reaction Status Date / Time bee venom protein (honey bee) Allergy Anaphylaxis Verified 12/31/23 01:58 adhesive tape AdvReac Rash Verified 12/31/23 01:58 iron AdvReac Nausea Verified 12/31/23 01:58 oxycodone HCl (From Percocet) AdvReac Nausea Verified 12/31/23 01:58 sertraline HCl (From Zoloft) AdvReac Nausea Verified 12/31/23 01:58 Surgical History History of delivery History of partial hysterectomy Social History household members: none Smoking Status: Light Smoker (<10/day) alcohol intake: current alcohol intake frequency: other substance use type: does not use ROS ROS ED Constitutional Constitutional ED: Denies chills or fever(s) ENT ENT ED: Reports other Details: Positive right upper lip pain/swelling Cardiovascular Cardiovascular: Denies chest pain Respiratory/Chest Respiratory/Chest: Denies cough or dyspnea Gastrointestinal Gastrointestinal: Denies abdominal pain, diarrhea, nausea or vomiting Genitourinary Genitourinary ED: Denies dysuria Musculoskeletal Musculoskeletal: Denies myalgias Integumentary Reports abscess; Denies rash Neurologic Neurologic: Denies headache(s) Hematologic/Lymphatic Hematologic/Lymphatic: Denies easy bleeding or easy bruising EXAM Physical Exam Const Vital Signs: 12/31/23 01:55 12/31/23 03:55 Temperature 98.4 F 97.5 F L Temperature Source Oral Pulse Rate 127 H 114 H Respiratory Rate 18 20 H Blood Pressure 124/87 H 143/95 H Blood Pressure Mean 99 111 Pulse Ox 97 96 Oxygen Delivery Method Room Air Positive well nourished, well developed and obese General Appearance ED: well developed Nutritional Appearance: obese HEENT HEENT Narrative: Along the lateral aspect of the right upper lip is 1/2 cm by half centimeter area of erythema warmth and induration consistent with abscess. No lymphangitic streaking noted. No discharge present. Eyes PERRL and EOMs intact bilaterally General Eye ED: Negative for scleral icterus Neck supple Neck Narrative: No nuchal rigidity or meningeal signs Resp normal respiratory effort and clear to auscultation bilaterally Cardio regular rate and regular rhythm Extremity Extremity Narrative: In the left axilla there is a 1 x 2 cm area of erythema warmth and fluctuance consistent with abscess. No active drainage noted. No surrounding erythema or lymphangitic streaking. Neuro oriented x3, CN's II-XII intact bilaterally and no sensory deficits noted Sensorium / Orientation: alert Motor Exam: strength 5/5 throughout Psych mental status grossly normal Skin Skin Narrative: Soft tissue changes to the left axilla and right upper lip consistent with abscess as documented above MDM MDM MDM Narrative Medical decision making narrative: Patient arrived to the ER tachycardic but otherwise with stable vitals. Physical exam is consistent with abscess. She does not have physical exam findings to suggest systemic infection such as septicemia from it. Therefore do not feel there is need for emergent imaging or laboratory studies. Patient had the areas incised and drained as documented below. With her technically being immunosuppressed secondary to her diabetes she will be placed on antibiotics. However as she does not show signs of systemic infection such as fever and hypotension I do not feel there is need for further workup and she is otherwise safe for discharge Patient had the left axilla cleaned with chlorhexidine. It was anesthetized with 8 mL of 2% lidocaine with epinephrine and local fashion. A #11 blade was used to make a 1 cm incision over top the area of fluctuance. A moderate amount of purulent material was expressed. Loculations were dissected with a needle nguyen. The wound was copiously irrigated with normal saline. The wound was then packed with quarter inch iodoform gauze Patient had a right upper lip cleaned with chlorhexidine. The area was anesthetized with 3 mL of 2% lidocaine with epinephrine and local fashion. An 18-gauge needle was then used to puncture the area of induration. A small amount of clear material was expressed. Loculations were dissected with a needle nguyen. The wound was then copiously irrigated with normal saline. Patient tolerated the procedure well without complication. History & Record Review Discussion w/independent historian: Patient and Significant other Discharge Plan Triage Chief Complaint: Abscess Other Complaint: Wound ED Provider: Crow Gil Dx/Rx/DC Orders Clinical Impression: Abscess, Diabetes mellitus, Hyperlipidemia Instructions: ED Abscess Incision And Drainage Prescriptions: New clindamycin HCl [Cleocin HCl] 300 mg capsule 300 mg PO 4X/DAY 10 Days Qty: 40 0RF hydrocodone-acetaminophen 5-325 mg tablet 1 tab PO Q6H PRN PRN (Reason: Pain) 3 Days Qty: 12 0RF No Action glimepiride 4 MG tablet 4 mg PO BID Patient Comments: gabapentin [Neurontin] 100 MG capsule 100 mg PO TID Patient Comments: TAKES ONLY AT NIGHT cholecalciferol (vitamin D3) [Vitamin D3] 1,000 UNIT tablet 2,000 unit PO DAILY meloxicam 15 MG tablet 15 mg PO DAILY Qty: 15 0RF epinephrine 0.3 mg/0.3 mL auto-injector 0.3 mg IM .once PRN (Reason: anaphylaxis) Qty: 2 0RF Rx Instructions: for 2 doses tizanidine [Zanaflex] 4 mg tablet 4 mg PO QHS PRN (Reason: muscle spasticity) Qty: 14 0RF baclofen 10 mg tablet 10 mg PO Q12H lovastatin 40 mg tablet 40 mg PO DAILY venlafaxine 150 mg capsule,extended release 24hr 150 mg PO DAILY lansoprazole 30 mg capsule,delayed release(DR/EC) 30 mg PO DAILY omeprazole 20 mg capsule,delayed release(DR/EC) 20 mg PO DAILY hydroxyzine HCl 25 mg tablet 25 mg PO TID insulin degludec [Tresiba FlexTouch U-100] 100 unit/mL (3 mL) insulin pen 50 unit subcut QHS Trulicity 4.5 mg/0.5 mL pen injector 4.5 mg subcut Q7D aripiprazole 5 mg tablet 5 mg PO DAILY Primary Care Provider: Lele Hillman Referrals: Lele Hillman DO [Primary Care Provider] - Activity Restrictions/Additional Instructions: Please remove your packing in 48 to 72 hours and return to the ER should you have any further concerns Print Language: Micronesian Disposition Disposition: Home, Self Care Discharge Date/Time: 12/31/23 04:01
[2023-12-31] MEDS: HYDROcodone Bitartrate/Apap 5/325 Tablet PO (03:53)
[2023-12-31 03:55] VITALS: BP 143/95; PULSE 114; RESP 20; TEMP 36.4; O2SAT 96
== END 2023-12-31 04:01 | disposition home or self-care (01) ==
PROVIDERS: Emergency Provider Emergency Medicine; PCP Student in an Organized Health Care Education/Training Program; Visit Provider Emergency Medicine
DX: L02.412 Cutaneous abscess of left axilla (principal); E11.9 Type 2 diabetes mellitus without complications; Z79.4 Long term (current) use of insulin; E78.5 Hyperlipidemia, unspecified; F17.200 Nicotine dependence, unspecified, uncomplicated; Z79.84 Long term (current) use of oral hypoglycemic drugs; Z79.85 Long-term (current) use of injectable non-insulin antidiabetic drugs; F41.9 Anxiety disorder, unspecified; F32.A Depression, unspecified; Z79.899 Other long term (current) drug therapy; Z90.710 Acquired absence of both cervix and uterus
CPT/HCPCS: 10060; 99282